=== PATIENT | male | born 1975 | race Two or more races ===

== ENCOUNTER 2017-11-02 22:31 | Inpatient (IN) | payer OTHER ==
[2017-11-02] MEDS ORDERED: NS 0.9% 1000 ML* 1,000 ML IV ONE (23:26)
[2017-11-02] MEDS ORDERED: Morphine INJ* 4 MG/ML 1 ML CARPUJECT IV ONE (23:26)
[2017-11-02] MEDS ORDERED: Ondansetron INJ* 2 MG/ML VIAL IV ONE (23:26)
[2017-11-03 00:52] LABS: Hematocrit 39 % (42-52); Hemoglobin 13.7 g/dl (14.0-18.0); Mean Corpuscular HGB Conc 35 g/dl (31-36); Mean Corpuscular Hemoglobin 31 pg (27-31); Mean Corpuscular Volume 90 fL (80-94); Mean Platelet Volume 8 um3 (7.4-10.4); Platelet Count 153 10^3/ul (150-450); Red Blood Count 4.37 10^6/ul (4.0-5.4); Red Cell Distribution Width 15 % (10.5-15); White Blood Count 14.3 10^3/ul (3.5-10.8)
[2017-11-03 01:05] LABS: INR 2.07 (0.77-1.02)
[2017-11-03 01:10] LABS: EGFR Non-African American 115.4 (>60)
[2017-11-03] MEDS ORDERED: KCL 20 MEQ/100 ML IVPREMIX* 20 MEQ/100 ML BAG IV ONE (01:31)
[2017-11-03] MEDS ORDERED: Meropenem 1 GM PREMIX(*) 1 GM/50 ML BAG IV ONE (01:32)
[2017-11-03] MEDS ORDERED: metroNIDAZOLE IV 500 MG/100ML* 500 MG/100 ML BAG IVPB ONE (01:34)
[2017-11-03] MEDS ORDERED: NS 0.9% 1000 ML* 2,000 ML IV ONE (01:35)
[2017-11-03 01:36] LABS: ABS Basophils 0.1 10^3/ul (0-0.2); ABS Eosinophils 0 10^3/ul (0-0.6); ABS Lymphocytes 1.4 10^3/ul (1.0-4.8); ABS Monocytes 1.7 10^3/ul (0-0.8); ABS Nucleated RBC 0 10^3/ul; Eosinophil % 0.1 % (0-6); Nucleated Red Blood Cells % 0.2
[2017-11-03] MEDS ORDERED: Ibuprofen TAB* 600 MG PO ONE (01:36)
[2017-11-03 02:23] LABS: Urine Appearance Clear; Urine Blood Negative (Negative); Urine Color Amber; Urine Ketones Negative (Negative); Urine Protein Negative (Negative); Urine Specific Gravity 1.013 (1.010-1.030); Urine Urobilinogen Positive (Negative)
--- NOTE | 2017-11-03 04:02 | ED ---
Keegan Ruiz Nilda, scribed for Emre Manuel MD on 11/03/17 at 0227 . GI/ HPI - HPI Summary HPI Summary: This patient is a 42 year old M presenting to [facility] accompanied by brother with a chief complaint of constant bilat flank pain for a few years, but it has progressively worsened for the last 4 nights. The patient rates the pain 9/10 in severity. Symptoms aggravated and alleviated by nothing. Patient reports N/V/ D, RUQ abd pain, and dark, oily abnormal urine (began 4 days ago). Patient denies fever. - History of Current Complaint Chief Complaint: EDFlankPain Time Seen by Provider: 11/02/17 23:21 Stated Complaint: FLANK PAIN Hx Obtained From: Patient Onset/Duration: Started Weeks Ago, Still Present Timing: Constant Current Severity: Severe Pain Intensity: 9 Location of Pain: Flank - bilat Pain Radiates to: Flank Associated Signs and Symptoms: Positive: Other: - N/V/D, RUQ abd pain, and dark , oily abnormal urine (4 days ago). Patient denies fever. Aggravating Factor(s): Nothing Alleviating Factor(s): Nothing - Allergy/Home Medications Allergies/Adverse Reactions: Allergies Allergy/AdvReac Type Severity Reaction Status Date / Time No Known Allergies Allergy Verified 11/02/17 22:36 PMH/Surg Hx/FS Hx/Imm Hx Endocrine/Hematology History: Reports: Hx Diabetes, Hx Thyroid Disease - hypothyroidism Cardiovascular History: Reports: Hx Hypercholesterolemia, Hx Hypertension Denies: Hx Pacemaker/ICD Respiratory History: Reports: Hx Asthma, Hx Chronic Obstructive Pulmonary Disease (COPD) - getting there, Hx Sleep Apnea GI History: Denies: Hx Ulcer History: Denies: Hx Renal Disease Sensory History: Denies: Hx Hearing Aid Psychiatric History: Reports: Hx Substance Abuse - in recovery Denies: Hx Panic Disorder - Immunization History Date of Tetanus Vaccine: unknown Date of Influenza Vaccine: none Infectious Disease History: No Infectious Disease History: Denies: Hx Hepatitis, Hx Human Immunodeficiency Virus (HIV), Traveled Outside the [place] in Last 30 Days - Family History Known Family History: Positive: Cardiac Disease, Diabetes, Other - CVA - Social History Alcohol Use: Daily Alcohol Amount: several "tall boys" daily Substance Use Type: Reports: Marijuana Substance Use Comment - Amount & Last Used: weekly Smoking Status (MU): Heavy Every Day Tobacco Smoker Review of Systems Negative: Fever Positive: Abdominal Pain - RUQ, Vomiting, Diarrhea, Nausea Positive: flank pain - bilat, other - dark, oily urine (past 4 days) All Other Systems Reviewed And Are Negative: Yes Physical Exam - Summary Physical Exam Summary: VITAL SIGNS: Reviewed. GENERAL: Patient is a well-developed and nourished male who is lying comfortable in the stretcher. Patient is not in any acute respiratory distress. HEAD AND FACE: No signs of trauma. No ecchymosis, hematomas or skull depressions. No sinus tenderness. EYES: PERRLA, EOMI x 2, No injected conjunctiva, no nystagmus; Deeply icteric sclera EARS: Hearing grossly intact. Ear canals and tympanic membranes are within normal limits. MOUTH: Oropharynx within normal limits. NECK: Supple, trachea is midline, no adenopathy, no JVD, no carotid bruit, no c- spine tenderness, neck with full ROM. CHEST: Symmetric, no tenderness at palpation LUNGS: Clear to auscultation bilaterally. No wheezing or crackles. CVS: Regular rate and rhythm, S1 and S2 present, no murmurs or gallops appreciated. ABDOMEN: Soft. No signs of distention. No rebound, no guarding. Bowel sounds are normal. RUQ tenderness with deep palpation and hepatomegaly. EXTREMITIES: FROM in all major joints, no edema, no cyanosis or clubbing. NEURO: Alert and oriented x 3. No acute neurological deficits. Speech is normal and follows commands. SKIN: Dry and warm Triage Information Reviewed: Yes Vital Signs On Initial Exam: Initial Vitals Temp Pulse Resp BP Pulse Ox 100.9 F 122 18 161/92 97 11/02/17 22:33 11/02/17 22:33 11/02/17 22:33 11/02/17 22:33 11/02/17 22:33 Vital Signs Reviewed: Yes - Pernell Coma Scale Coma Scale Total: 15 Diagnostics - Vital Signs Vital Signs Temp Pulse Resp BP Pulse Ox 11/03/17 01:53 100.8 F 107 14 97 11/03/17 00:41 17 11/02/17 22:33 100.9 F 122 18 161/92 97 - Laboratory Lab Results: Lab Results 11/03/17 11/03/17 11/03/17 Range/Units 00:35 00:35 00:35 WBC 14.3 H (3.5-10.8) 10^3/ul RBC 4.37 (4.0-5.4) 10^6/ul Hgb 13.7 L (14.0-18.0) g/dl Hct 39 L (42-52) % MCV 90 (80-94) fL MCH 31 (27-31) pg MCHC 35 (31-36) g/dl RDW 15 (10.5-15) % Plt Count 153 (150-450) 10^3/ul MPV 8 (7.4-10.4) um3 Neut % (Auto) 77.2 (38-83) % Lymph % (Auto) 10.0 L (25-47) % Lassen % (Auto) 12.3 H (1-9) % Eos % (Auto) 0.1 (0-6) % Baso % (Auto) 0.4 (0-2) % Absolute Neuts (auto) 11.0 H (1.5-7.7) 10^3/ul Absolute Lymphs (auto) 1.4 (1.0-4.8) 10^3/ul Absolute Monos (auto) 1.7 H (0-0.8) 10^3/ul Absolute Eos (auto) 0 (0-0.6) 10^3/ul Absolute Basos (auto) 0.1 (0-0.2) 10^3/ul Absolute Nucleated RBC 0 10^3/ul Nucleated RBC % 0.2 Target Cells 2+ INR (Anticoag Therapy) (0.77-1.02) APTT (26.0-36.3) seconds Sodium 127 L (133-145) mmol/L Potassium 2.7 L* (3.5-5.0) mmol/L Chloride 90 L (101-111) mmol/L Carbon Dioxide 29 (22-32) mmol/L Anion Gap 8 (2-11) mmol/L BUN 4 L (6-24) mg/dL Creatinine 0.74 (0.67-1.17) mg/dL Est GFR ( Amer) 148.5 (>60) Est GFR (Non-Af Amer) 115.4 (>60) BUN/Creatinine Ratio 5.4 L (8-20) Glucose 126 H (70-100) mg/dL Lactic Acid 1.6 (0.5-2.0) mmol/L Calcium 8.4 L (8.6-10.3) mg/dL Total Bilirubin 19.90 H* (0.2-1.0) mg/dL AST 419 H (13-39) U/L ALT 190 H (7-52) U/L Alkaline Phosphatase 298 H (34-104) U/L Ammonia (16-53) mol/L C-Reactive Protein 75.82 H (< 5.00) mg/L Total Protein 7.1 (6.4-8.9) g/dL Albumin 2.6 L (3.2-5.2) g/dL Globulin 4.5 H (2-4) g/dL Albumin/Globulin Ratio 0.6 L (1-3) Amylase 31 (29-103) U/L Lipase 56 (11.0-82.0) U/L 11/03/17 11/03/17 Range/Units 00:35 00:35 WBC (3.5-10.8) 10^3/ul RBC (4.0-5.4) 10^6/ul Hgb (14.0-18.0) g/dl Hct (42-52) % MCV (80-94) fL MCH (27-31) pg MCHC (31-36) g/dl RDW (10.5-15) % Plt Count (150-450) 10^3/ul MPV (7.4-10.4) um3 Neut % (Auto) (38-83) % Lymph % (Auto) (25-47) % Lassen % (Auto) (1-9) % Eos % (Auto) (0-6) % Baso % (Auto) (0-2) % Absolute Neuts (auto) (1.5-7.7) 10^3/ul Absolute Lymphs (auto) (1.0-4.8) 10^3/ul Absolute Monos (auto) (0-0.8) 10^3/ul Absolute Eos (auto) (0-0.6) 10^3/ul Absolute Basos (auto) (0-0.2) 10^3/ul Absolute Nucleated RBC 10^3/ul Nucleated RBC % Target Cells INR (Anticoag Therapy) 2.07 H (0.77-1.02) APTT 40.3 H (26.0-36.3) seconds Sodium (133-145) mmol/L Potassium (3.5-5.0) mmol/L Chloride (101-111) mmol/L Carbon Dioxide (22-32) mmol/L Anion Gap (2-11) mmol/L BUN (6-24) mg/dL Creatinine (0.67-1.17) mg/dL Est GFR ( Amer) (>60) Est GFR (Non-Af Amer) (>60) BUN/Creatinine Ratio (8-20) Glucose (70-100) mg/dL Lactic Acid (0.5-2.0) mmol/L Calcium (8.6-10.3) mg/dL Total Bilirubin (0.2-1.0) mg/dL AST (13-39) U/L ALT (7-52) U/L Alkaline Phosphatase (34-104) U/L Ammonia 101 H (16-53) mol/L C-Reactive Protein (< 5.00) mg/L Total Protein (6.4-8.9) g/dL Albumin (3.2-5.2) g/dL Globulin (2-4) g/dL Albumin/Globulin Ratio (1-3) Amylase (29-103) U/L Lipase (11.0-82.0) U/L Result Diagrams: 11/03/17 00:35 11/03/17 00:35 Lab Statement: Any lab studies that have been ordered have been reviewed, and results considered in the medical decision making process. - Additional Comments Diagnostic Additional Comments: US Gallbladder, per radiologist, reveals enlarged fatty liver. Minimal perihepatic and pericholecystic fluid of uncertain etiology. No evidence of cholecystitis. Dr. Manuel has reviewed this radiology report. Re-Evaluation - Re-Evaluation First Eval Re-Evaluation Time: 02:06 Comment: Reviewed US resutls. Pt admits to drinking ETOH daily for the last four years. GIGU Course/Dx - Course Assessment/Plan: This pt is a 42 y/o M with Hx of HTN and ETOH abuse for the past 4 years. Pt presents with acute onset of jaundice, abd pain, N/V, elevated liver enzyme, high white count, and fever. Differentials include Acute cholangitis vs acute alcoholic liver disease. US Gallbladder, per radiologist, reveals enlarged fatty liver. Minimal perihepatic and pericholecystic fluid of uncertain etiology. No evidence of cholecystitis. Dr. Manuel has reviewed this radiology report. 0249 Dr. Bo (hospitalist) accepts pt for admission to [facility]. Pt is stable and will be transferred to [facility] for GI consult. - Diagnoses Provider Diagnoses: Acute liver disease, Acute cholangitis - Physician Notifications Discussed Care Of Patient With: Dr. Bo - Hospitalist [facility] Time Discussed With Above Provider: 02:49 Instructed by Provider To: Transfer - accepts pt for transfer. Discharge - Discharge Plan Condition: Stable Disposition: TRANS HIGHER LVL OF CARE FAC Discharge Disposition Comment: Transfer to [facility] Referrals: No Primary Care Phys,NOPCP [Primary Care Provider] - The documentation as recorded by the Keegan carreon Nilda accurately reflects the service I personally performed and the decisions made by Kaleb savage Abdul, MD.
[2017-11-03] MEDS: KCL premix 10MEQ/50 ML x 2 BAGS IV SCH ×2 (04:03→05:15)
[2017-11-03] MEDS ORDERED: HYDROmorphone INJ* 1 MG/ML CARPUJECT SYRINGE IV SLOW PU ONE (04:07)
--- NOTE | 2017-11-03 08:16 | CONSULT ---
Consult Consult: Mr. Corral presented with bilateral flank pain that he has had for a long time and a new onset of jaundice about 4 days [employer]. He's a steady drinker. He C/ O'd some mild pressure to palpation over his RUQ. I think he has an alcoholic hepatitis. His AST is quite a bit higher than his ALT and he is quite jaundice with a low grade fever. I consulted Dr. Simons of the hospitalist service for admission. He will be admitted in stable condition with a diagnosis of alcoholic hepatitis.
[2017-11-03] MEDS ORDERED: Al Hydrox/Mg Hydrox/Simet LIQ* 30 ML UDC PO PRN (09:04)
[2017-11-03] MEDS ORDERED: Ondansetron INJ* 2 MG/ML VIAL IV PRN (10:55)
[2017-11-03] MEDS: Morphine INJ* 4 MG/ML 1 ML CARPUJECT IV PRN ×3 (11:30→19:58)
--- NOTE | 2017-11-03 11:43 | RAD ---
Indication: Abdominal pain. Real-time sonography of the abdomen was performed. The liver measures 22.3 cm in length and is increased in echogenicity. The portal vein appears to be patent. A trace amount of ascites is noted near the Dome and surrounding the gallbladder. The gallbladder demonstrates no gallstones or wall thickening. Common duct measures 5 mm. The right kidney measures 12.6 x 5.7 x 5.3 cm with no hydronephrosis. The pancreas demonstrates no mass or pancreatic duct dilatation. IMPRESSION: Enlarged echogenic liver with small amount of ascites. No biliary duct dilatation is noted. A small amount of pericholecystic fluid is noted.
[2017-11-03] MEDS: PrednisoLONE LIQ 3 MG/ML* 15 MG/5 ML UDC PO SCH (12:38)
[2017-11-03] MEDS ORDERED: Acetaminophen TAB* 325 MG PO PRN (13:11)
[2017-11-03] MEDS ORDERED: Thiamine IV* 100 MG/ML 2 ML VIAL IM ONE (13:11)
[2017-11-03] MEDS: NS 0.9% 1000 ML* 1,000 ML IV SCH ×2 (13:18→23:06)
--- NOTE | 2017-11-03 13:39 | HP ---
ADDENDUM NOW INCLUDED ON THIS REPORT HISTORY AND PHYSICAL: DATE OF ADMISSION: 11/03/17 TIME OF EXAM: 9:30 a.m. PRIMARY CARE PHYSICIAN: He has not seen a physician in 2 years. CHIEF COMPLAINT: "My kidneys hurt, I've been weak." HISTORY OF PRESENT ILLNESS: This is a 42-year-old man with a history of hypertension, diabetes, and anxiety, who presents with 5 days of back pain, weakness, and inability to tolerate food, associated with nausea and vomiting for 5 days. He does report history of alcohol abuse, but says that he has not been under any extra recent stress lately and has not drank more than his usual 5 beers per day. He has felt so ill that he has not drank alcohol since Friday night. He has not noticed change in his skin or eye color, but he has noticed that his urine has become darker. He is obese; he has been losing weight. He believes he has been having occasional fevers and chills. He denies abdominal pain or abdominal distention and does not know of any liver disease that he has been diagnosed with in the past. PAST MEDICAL HISTORY: He has not seen a physician in over 2 years. He was diagnosed with diabetes, but says that it has been controlled with diet. He has been diagnosed with hypertension and anxiety. HOME MEDICATIONS: 1. Klonopin 1 mg p.o. t.i.d. 2. Clonidine 0.1 mg q.h.s. FAMILY HISTORY: His uncle had a liver transplant recently, but he is not sure why. He also has coronary artery disease in his family. SOCIAL HISTORY: He drinks five 24 ounces beers per day and has been doing so for 4- 1/2 years. He smokes 10 cigarettes per day and occasionally uses marijuana. 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 REVIEW OF SYSTEMS: Positive for chills, nausea, vomiting, poor appetite. He denies diarrhea, constipation, melena or hematochezia. PHYSICAL EXAMINATION GENERAL: Alert, well-nourished man with jaundice. VITAL SIGNS: Temperature 100.1, heart rate 122, respirations 18, pulse ox 97%, blood pressure 151/92. HEENT: Scleral icterus. Pupils are equal, round and reactive to light. Moist mucosa. NECK: No JVP. No cervical adenopathy. LUNGS: Clear bilaterally. CHEST: Tachycardic. No murmurs. BMI nondisplaced. ABDOMEN: Obese, soft, nontender, and nondistended. Liver palpable at the right coastal margin. No guarding or rebound. Bowel sounds hyperactive. No flank pain or tenderness. EXTREMITIES: Tattoos on both upper extremities. No lower extremity edema. Strength 5+ throughout and sensation intact. No asterixis. NEUROLOGIC: Alert and oriented x3. DIAGNOSTIC STUDIES/LAB DATA: Bilirubin 19.9, ALT 190, AST 419, alk phos 298. White blood cells 14.3. Sodium 127, potassium 2.7. HCV antibody positive. INR of 2.07. ASSESSMENT AND PLAN: This is a 42-year-old male with history of alcohol abuse, who presents with weakness, nausea, vomiting, and back pain for 5 days. 1. Alcoholic hepatitis. I suspect this is alcoholic hepatitis; however, I need prothrombin time to confirm with Derrick's Discriminant Function Score. I am adding a prothrombin time now and will determine the need for prednisolone. After the result of the discriminant function score, I am consulting GI. 2. Alcohol abuse. He denies ever having had seizures or delirium tremens. He said his last drink was approximately 36 hours ago. I will start the [facility] protocol and consult Social Work. 3. Coagulopathy, likely related to the alcoholic hepatitis. It is unknown if he has underlying cirrhosis or if this is an acute process relating to hepatitis. No evidence of bleeding right now and no indication to reverse the coagulopathy. We will continue to monitor. 4. Sepsis. I suspect this is reactive in relation to the hepatitis and an inflammatory response. He has no evidence of an infectious source at this point. No indication for antibiotics. We will continue to monitor. 5. Hepatitis C virus positive. This is a new diagnosis for Mr. Corral. This in combination with alcoholic abuse is very concerning for ongoing liver disease and alcohol abstinence is essential for him. We will arrange outpatient ID followup if he is interested in hepatitis C therapy and we will check a right upper quadrant ultrasound to evaluate for cirrhosis and rule out _ ____. 6. Hypokalemia, likely related to poor p.o. intake, replete now. 7. Anxiety disorder. Continue home dose of Klonopin. 8. Hypertension. Continue clonidine. 9. DVT prophylaxis. We will hold given coagulopathy; however, it should be noted that he is indeed hypercoagulable if this is a coagulopathy of cirrhosis. TIME SPENT: Greater than 60 minutes was spent on this admission. ADDENDUM: I discussed the prothrombin time with lab. His PT is 25.9. This gives him a Maddrey's Discriminant Function Score of 84, so I am initiating prednisolone and we will discuss this with GI. [id number]/[facility] #: [id number]/[facility] #: [id number] PAMELA
--- NOTE | 2017-11-03 13:39 | HP ---
HISTORY AND PHYSICAL: ADDENDUM: I discussed the prothrombin time with lab. His PT is 25.9. This gives him a Maddrey's Discriminant Function Score of 84, so I am initiating prednisolone and we will discuss this with GI. [id number]/[facility] #: [id number] PAMELA
[2017-11-03] MEDS ORDERED: LORazepam INJ* 2 MG/ML 1 ML VIAL IM SCH (14:00)
[2017-11-03] MEDS: clonazePAM TAB(*) 1 MG PO SCH ×2 (14:12→20:43)
[2017-11-03] MEDS: cloNIDine TAB* 0.1 MG PO SCH (17:34)
[2017-11-03] MEDS ORDERED: Mouth Piece, Nicotine* 1 EACH CARTRIDGE INH PRN (19:45)
[2017-11-03] MEDS: Nicotine Inhaler* 10 MG AMP INH PRN (20:42)
[2017-11-04] MEDS: Morphine INJ* 4 MG/ML 1 ML CARPUJECT IV PRN ×5 (00:02→23:41)
--- NOTE | 2017-11-04 00:23 | CONS ---
CONSULTATION REPORT: DATE OF CONSULT: 11/03/17 REQUESTING PHYSICIAN: Dr. Simons. INDICATION: Alcoholic hepatitis. NARRATIVE: Mr. Corral is a 42-year-old alcoholic, he admits to drinking greater than 5 beers per day. He has not been drinking over the past few days because he has been feeling so ill. He states that he has been nauseated, has abdominal pain, and was just too sick to drink alcohol. He has also noticed darker urine. He denies any black stool. No confusion. He states that he was checked for hepatitis C 2 years ago. He did have a positive HCV antibody in the emergency room. Again slight nausea, no vomiting. He is feeling slightly better after receiving some fluids. PAST MEDICAL HISTORY: Significant for diabetes, hypertension, and anxiety. PAST SURGICAL HISTORY: None. MEDICATIONS: Upon admission include: 1. Clonidine. 2. Klonopin. FAMILY HISTORY: Liver disease, his uncle had a liver transplant, but the patient does not know why; coronary artery disease in the family. SOCIAL HISTORY: Five 24-ounce beers per day. He smokes cigarettes and marijuana. REVIEW OF SYSTEMS: 12 systems were reviewed, other than mentioned in the HPI were unremarkable. PHYSICAL EXAM: Temperature is 98.3, T-max is 99.3, blood pressure is 135/71, pulse is 92. General: Chronically ill-appearing male, in no acute distress. Alert, oriented, pleasant, fluent. HEENT: Sclerae are icteric. Mucous membranes are moist without lesions, ulcers, or exudate. Skin is jaundiced. Neuro: No asterixis. Heart: Regular rate and rhythm. No murmurs, rubs, or gallops. Lungs: Clear to auscultation bilaterally. No wheezes, rales, or rhonchi. Abdomen is obese, positive bowel sounds, soft. Diffuse tenderness throughout. No rebound, no guarding. He does have dull flanks. DIAGNOSTIC STUDIES/LAB DATA: Labs of note, INR is 2.07. Hepatitis B surface antigen is negative. Hepatitis C antibody is positive. BUN is 4, creatinine is 0.74, sodium is 127, platelets of 153. Hemoglobin 13.7, white count is 14.3. Bilirubin was 19.0, AST is 419, ALT is 190. Ammonia is 101. Amylase and lipase normal. His MELD is calculated at 31. His Maddrey discriminant score is 84. Gallbladder ultrasound shows ascites and a large liver. ASSESSMENT AND PLAN: This is a 42-year-old gentleman with likely acute on chronic alcoholic hepatitis in the setting of alcoholic cirrhosis. His Maddrey score is 84. I agree with the prednisolone, which has been already started. His MELD is elevated at 31. He unfortunately has hepatitis C positive, this in combination with alcoholism is a very bad combination. He has ascites, I do not think this needs to be treated right now but may require diuretics in the future. Even though his ammonia is 101, he has no asterixis. He may have just mild encephalopathy at this point. No black and tarry stools. He will need to have an EGD as an outpatient. He needs to avoid all alcohol and potentially get his hepatitis C treated as an outpatient, we will continue to follow along. [id number]/[facility] #: [id number] MTDJose Alberto
[2017-11-04] MEDS: Nicotine Inhaler* 10 MG AMP INH PRN (01:49)
[2017-11-04 06:52] LABS: INR 2.3 (0.77-1.02)
[2017-11-04] MEDS: NS 0.9% 1000 ML* 1,000 ML IV SCH ×3 (06:52→21:29)
[2017-11-04 06:53] LABS: ABS Basophils 0.1 10^3/ul (0-0.2); ABS Eosinophils 0 10^3/ul (0-0.6); ABS Lymphocytes 1.4 10^3/ul (1.0-4.8); ABS Monocytes 1.1 10^3/ul (0-0.8); ABS Neutrophils 9.7 10^3/ul (1.5-7.7); ABS Nucleated RBC 0 10^3/ul; Eosinophil % 0.2 % (0-6); Hematocrit 38 % (42-52); Hemoglobin 13.4 g/dl (14.0-18.0); Lymphocyte % 11.2 % (25-47); Mean Corpuscular HGB Conc 35 g/dl (31-36); Mean Corpuscular Hemoglobin 32 pg (27-31); Mean Corpuscular Volume 91 fL (80-94); Mean Platelet Volume 8 um3 (7.4-10.4); Nucleated Red Blood Cells % 0.1; Platelet Count 144 10^3/ul (150-450); Red Blood Count 4.17 10^6/ul (4.0-5.4); Red Cell Distribution Width 16 % (10.5-15); White Blood Count 12.3 10^3/ul (3.5-10.8)
[2017-11-04] MEDS ORDERED: Influenza VAC *QUAD* 2017-18* 0.5 ML SYRINGE IM ONE (09:00)
[2017-11-04 09:51] LABS: EGFR Non-African American 123.1 (>60)
[2017-11-04] MEDS ORDERED: Potassium Chlor TAB* 20 MEQ TAB.ER PO ONE (10:09)
[2017-11-04] MEDS: PrednisoLONE LIQ 3 MG/ML* 15 MG/5 ML UDC PO SCH (10:30)
[2017-11-04] MEDS: Folic Acid TAB* 1 MG PO SCH (10:31)
[2017-11-04] MEDS: clonazePAM TAB(*) 1 MG PO SCH ×3 (10:31→20:26)
[2017-11-04] MEDS: Multivitamins/Minerals TAB PO SCH (10:31)
--- NOTE | 2017-11-04 10:31 | PN ---
Subjective Date of Service: 11/04/17 Interval History: No N/V No abdominal pain but pain in b/l flanks No CP or SOB Appetite is poor Objective Active Medications: Acetaminophen (Tylenol Tab*) 650 mg PO Q4H PRN PRN Reason: PAIN Al Hydrox/Mg Hydrox/Simethicone (Maalox Plus*) 30 ml PO Q6H PRN PRN Reason: INDIGESTION Clonazepam (Klonopin Tab(*)) 1 mg PO TID [facility] Last Admin: 11/03/17 20:43 Dose: 1 mg Clonidine HCl (Catapres Tab*) 0.1 mg PO QPM [facility] Last Admin: 11/03/17 17:34 Dose: 0.1 mg Device (Nicotine Mouth Piece*) 1 each INH .USE WITH NICOTROL PRN PRN Reason: CRAVING Last Admin: 11/03/17 20:42 Dose: 1 each Folic Acid (Folvite Tab*) 1 mg PO DAILY [facility] Sodium Chloride (Ns 0.9% 1000 Ml*) 1,000 mls @ 150 mls/hr IV PER RATE [facility] Last Admin: 11/04/17 06:52 Dose: 150 mls/hr Lorazepam (Ativan Inj*) 0 - 6 mg IM .PER [facility] PROTOCOL [facility] PRN Reason: Protocol Morphine Sulfate (Morphine Inj (Syringe)*) 4 mg IV Q4H PRN PRN Reason: PAIN Last Admin: 11/04/17 04:54 Dose: 4 mg Multivitamins/Minerals (Theragran/Minerals Tab*) 1 tab PO DAILY [facility] Nicotine (Nicotine Inhaler*) 10 mg INH Q2H PRN PRN Reason: CRAVING Last Admin: 11/04/17 01:49 Dose: 10 mg Ondansetron HCl (Zofran Inj*) 4 mg IV Q4H PRN PRN Reason: NAUSEA Prednisolone Sodium Phosphate (Prednisolone Liq 3 Mg/Ml 5 Ml Udc*) 40 mg PO DAILY [facility] Last Admin: 11/03/17 12:38 Dose: 40 mg Thiamine HCl (Vitamin B-1 Tab*) 100 mg PO DAILY [facility] Vital Signs - 8 hr 11/04/17 11/04/17 11/04/17 04:54 06:01 06:05 Temperature 98.1 F Pulse Rate 86 Respiratory 18 18 20 Rate Blood Pressure 124/68 (mmHg) O2 Sat by Pulse 99 Oximetry 11/04/17 08:07 Temperature 97.9 F Pulse Rate 83 Respiratory 16 Rate Blood Pressure 124/74 (mmHg) O2 Sat by Pulse 99 Oximetry Oxygen Devices in Use Now: None Appearance: jaundiced, lying flat, NAD Eyes: PERRLA, - - icteric Neck: NL Appearance and Movements; NL JVP, Trachea Midline Respiratory: Symmetrical Chest Expansion and Respiratory Effort, Clear to Auscultation Cardiovascular: RRR Abdominal: - - soft, NTTP, +distention, +bs Lymphatic: No Cervical Adenopathy, No Axillary Adenopathy Extremities: No Edema Skin: No Rash or Ulcers, - - diffusely jaundiced Neurological: Alert and Oriented x 3, - - no asterixis Result Diagrams: 11/04/17 06:11 11/04/17 06:11 Additional Lab and Data: Lab Results 11/03/17 11/03/17 11/03/17 Range/Units 00:35 00:35 00:35 WBC 14.3 H (3.5-10.8) 10^3/ul RBC 4.37 (4.0-5.4) 10^6/ul Hgb 13.7 L (14.0-18.0) g/dl Hct 39 L (42-52) % MCV 90 (80-94) fL MCH 31 (27-31) pg MCHC 35 (31-36) g/dl RDW 15 (10.5-15) % Plt Count 153 (150-450) 10^3/ul MPV 8 (7.4-10.4) um3 Neut % (Auto) 77.2 (38-83) % Lymph % (Auto) 10.0 L (25-47) % Taylor % (Auto) 12.3 H (1-9) % Eos % (Auto) 0.1 (0-6) % Baso % (Auto) 0.4 (0-2) % Absolute Neuts (auto) 11.0 H (1.5-7.7) 10^3/ul Absolute Lymphs (auto) 1.4 (1.0-4.8) 10^3/ul Absolute Monos (auto) 1.7 H (0-0.8) 10^3/ul Absolute Eos (auto) 0 (0-0.6) 10^3/ul Absolute Basos (auto) 0.1 (0-0.2) 10^3/ul Absolute Nucleated RBC 0 10^3/ul Nucleated RBC % 0.2 Target Cells 2+ INR (Anticoag Therapy) (0.77-1.02) APTT (26.0-36.3) seconds Sodium 127 L (133-145) mmol/L Potassium 2.7 L* (3.5-5.0) mmol/L Chloride 90 L (101-111) mmol/L Carbon Dioxide 29 (22-32) mmol/L Anion Gap 8 (2-11) mmol/L BUN 4 L (6-24) mg/dL Creatinine 0.74 (0.67-1.17) mg/dL Est GFR ( Amer) 148.5 (>60) Est GFR (Non-Af Amer) 115.4 (>60) BUN/Creatinine Ratio 5.4 L (8-20) Glucose 126 H (70-100) mg/dL Lactic Acid 1.6 (0.5-2.0) mmol/L Calcium 8.4 L (8.6-10.3) mg/dL Total Bilirubin 19.90 H* (0.2-1.0) mg/dL AST 419 H (13-39) U/L ALT 190 H (7-52) U/L Alkaline Phosphatase 298 H (34-104) U/L Ammonia (16-53) mol/L C-Reactive Protein 75.82 H (< 5.00) mg/L Total Protein 7.1 (6.4-8.9) g/dL Albumin 2.6 L (3.2-5.2) g/dL Globulin 4.5 H (2-4) g/dL Albumin/Globulin Ratio 0.6 L (1-3) Amylase 31 (29-103) U/L Lipase 56 (11.0-82.0) U/L 11/03/17 11/03/17 Range/Units 00:35 00:35 WBC (3.5-10.8) 10^3/ul RBC (4.0-5.4) 10^6/ul Hgb (14.0-18.0) g/dl Hct (42-52) % MCV (80-94) fL MCH (27-31) pg MCHC (31-36) g/dl RDW (10.5-15) % Plt Count (150-450) 10^3/ul MPV (7.4-10.4) um3 Neut % (Auto) (38-83) % Lymph % (Auto) (25-47) % Taylor % (Auto) (1-9) % Eos % (Auto) (0-6) % Baso % (Auto) (0-2) % Absolute Neuts (auto) (1.5-7.7) 10^3/ul Absolute Lymphs (auto) (1.0-4.8) 10^3/ul Absolute Monos (auto) (0-0.8) 10^3/ul Absolute Eos (auto) (0-0.6) 10^3/ul Absolute Basos (auto) (0-0.2) 10^3/ul Absolute Nucleated RBC 10^3/ul Nucleated RBC % Target Cells INR (Anticoag Therapy) 2.07 H (0.77-1.02) APTT 40.3 H (26.0-36.3) seconds Sodium (133-145) mmol/L Potassium (3.5-5.0) mmol/L Chloride (101-111) mmol/L Carbon Dioxide (22-32) mmol/L Anion Gap (2-11) mmol/L BUN (6-24) mg/dL Creatinine (0.67-1.17) mg/dL Est GFR ( Amer) (>60) Est GFR (Non-Af Amer) (>60) BUN/Creatinine Ratio (8-20) Glucose (70-100) mg/dL Lactic Acid (0.5-2.0) mmol/L Calcium (8.6-10.3) mg/dL Total Bilirubin (0.2-1.0) mg/dL AST (13-39) U/L ALT (7-52) U/L Alkaline Phosphatase (34-104) U/L Ammonia 101 H (16-53) mol/L C-Reactive Protein (< 5.00) mg/L Total Protein (6.4-8.9) g/dL Albumin (3.2-5.2) g/dL Globulin (2-4) g/dL Albumin/Globulin Ratio (1-3) Amylase (29-103) U/L Lipase (11.0-82.0) U/L Assess/Plan/Problems-Billing Assessment: - Patient Problems (1) Alcoholic hepatitis with ascites Comment: MDF >80 portending poor prognosis on steroids appreciate GI consult trend LFTs (2) Hepatitis C Comment: benefit from therapy after alcoholic hepatits resolved (3) Chronic alcoholism Comment: would like to quit SW consult (4) DVT prophylaxis Comment: SCDs in setting of hepatits and coagulopathy
[2017-11-04] MEDS: Thiamine TAB* 100 MG TAB PO SCH (10:32)
[2017-11-04] MEDS: cloNIDine TAB* 0.1 MG PO SCH (17:41)
[2017-11-05] MEDS: Morphine INJ* 4 MG/ML 1 ML CARPUJECT IV PRN ×5 (04:13→22:36)
[2017-11-05] MEDS: NS 0.9% 1000 ML* 1,000 ML IV SCH ×3 (04:15→18:17)
[2017-11-05 08:10] LABS: Hematocrit 39 % (42-52); Hemoglobin 13.6 g/dl (14.0-18.0); Mean Corpuscular HGB Conc 34 g/dl (31-36); Mean Corpuscular Hemoglobin 32 pg (27-31); Mean Corpuscular Volume 92 fL (80-94); Mean Platelet Volume 8 um3 (7.4-10.4); Platelet Count 161 10^3/ul (150-450); Red Cell Distribution Width 17 % (10.5-15); White Blood Count 15.1 10^3/ul (3.5-10.8)
[2017-11-05 08:14] LABS: INR 2.04 (0.77-1.02)
[2017-11-05 08:23] LABS: EGFR Non-African American 115.4 (>60)
[2017-11-05 08:38] LABS: ABS Basophils 0.2 10^3/ul (0-0.2); ABS Eosinophils 0 10^3/ul (0-0.6); ABS Lymphocytes 2.4 10^3/ul (1.0-4.8); ABS Monocytes 1.6 10^3/ul (0-0.8); ABS Neutrophils 10.9 10^3/ul (1.5-7.7); ABS Nucleated RBC 0 10^3/ul; Eosinophil % 0.3 % (0-6); Lymphocyte % 15.7 % (25-47); Nucleated Red Blood Cells % 0; Tear Drop Cells 1+
[2017-11-05] MEDS: PrednisoLONE LIQ 3 MG/ML* 15 MG/5 ML UDC PO SCH (09:21)
[2017-11-05] MEDS: Multivitamins/Minerals TAB PO SCH (09:26)
[2017-11-05] MEDS: Folic Acid TAB* 1 MG PO SCH (09:26)
[2017-11-05] MEDS: clonazePAM TAB(*) 1 MG PO SCH ×3 (09:26→20:14)
[2017-11-05] MEDS: Thiamine TAB* 100 MG TAB PO SCH (09:28)
[2017-11-05] MEDS: Nicotine Inhaler* 10 MG AMP INH PRN (14:17)
--- NOTE | 2017-11-05 17:26 | PN ---
Subjective Date of Service: 11/05/17 Interval History: Abdominal pain is present but improved Reflective today on his life. Wants to get better because he helps take care of his ill mother. Objective Active Medications: Acetaminophen (Tylenol Tab*) 650 mg PO Q4H PRN PRN Reason: PAIN Al Hydrox/Mg Hydrox/Simethicone (Maalox Plus*) 30 ml PO Q6H PRN PRN Reason: INDIGESTION Clonazepam (Klonopin Tab(*)) 1 mg PO TID [facility] Last Admin: 11/05/17 14:17 Dose: 1 mg Clonidine HCl (Catapres Tab*) 0.1 mg PO QPM [facility] Last Admin: 11/04/17 17:41 Dose: 0.1 mg Device (Nicotine Mouth Piece*) 1 each INH .USE WITH NICOTROL PRN PRN Reason: CRAVING Last Admin: 11/03/17 20:42 Dose: 1 each Folic Acid (Folvite Tab*) 1 mg PO DAILY [facility] Last Admin: 11/05/17 09:26 Dose: 1 mg Sodium Chloride (Ns 0.9% 1000 Ml*) 1,000 mls @ 150 mls/hr IV PER RATE [facility] Last Admin: 11/05/17 11:19 Dose: 150 mls/hr Lorazepam (Ativan Inj*) 0 - 6 mg IM .PER [facility] PROTOCOL [facility] PRN Reason: Protocol Morphine Sulfate (Morphine Inj (Syringe)*) 4 mg IV Q4H PRN PRN Reason: PAIN Last Admin: 11/05/17 14:16 Dose: 4 mg Multivitamins/Minerals (Theragran/Minerals Tab*) 1 tab PO DAILY [facility] Last Admin: 11/05/17 09:26 Dose: 1 tab Nicotine (Nicotine Inhaler*) 10 mg INH Q2H PRN PRN Reason: CRAVING Last Admin: 11/05/17 14:17 Dose: 10 mg Ondansetron HCl (Zofran Inj*) 4 mg IV Q4H PRN PRN Reason: NAUSEA Prednisolone Sodium Phosphate (Prednisolone Liq 3 Mg/Ml 5 Ml Udc*) 40 mg PO DAILY [facility] Last Admin: 11/05/17 09:21 Dose: 40 mg Thiamine HCl (Vitamin B-1 Tab*) 100 mg PO DAILY [facility] Last Admin: 11/05/17 09:28 Dose: 100 mg Vital Signs - 8 hr 11/05/17 11/05/17 11/05/17 09:26 10:00 10:01 Temperature 97.3 F Pulse Rate 85 Respiratory 17 16 20 Rate Blood Pressure 107/64 (mmHg) O2 Sat by Pulse 94 Oximetry 11/05/17 11/05/17 11/05/17 10:20 11:48 12:00 Temperature Pulse Rate Respiratory 16 16 20 Rate Blood Pressure (mmHg) O2 Sat by Pulse Oximetry 11/05/17 11/05/17 11/05/17 12:25 14:00 14:16 Temperature 98.1 F Pulse Rate 83 Respiratory 20 19 18 Rate Blood Pressure 141/83 (mmHg) O2 Sat by Pulse 97 Oximetry 11/05/17 11/05/17 11/05/17 14:17 14:24 15:15 Temperature 97.5 F Pulse Rate 84 Respiratory 19 19 18 Rate Blood Pressure 122/72 (mmHg) O2 Sat by Pulse 95 Oximetry 11/05/17 11/05/17 11/05/17 15:57 16:00 16:15 Temperature 97.8 F Pulse Rate 76 Respiratory 20 17 19 Rate Blood Pressure 115/69 (mmHg) O2 Sat by Pulse 96 Oximetry Oxygen Devices in Use Now: None Appearance: lying flat, NAD Eyes: PERRLA, - - scleral icterus Ears/Nose/Mouth/Throat: Mucous Membranes Moist Neck: NL Appearance and Movements; NL JVP, Trachea Midline Respiratory: Symmetrical Chest Expansion and Respiratory Effort, Clear to Auscultation Cardiovascular: RRR Abdominal: - - mild ttp RUQ, +bs, ND Lymphatic: No Cervical Adenopathy Extremities: No Edema Skin: No Rash or Ulcers Neurological: Alert and Oriented x 3 Result Diagrams: 11/05/17 07:38 11/05/17 07:38 Additional Lab and Data: Lab Results 11/03/17 11/03/17 11/03/17 Range/Units 00:35 00:35 00:35 WBC 14.3 H (3.5-10.8) 10^3/ul RBC 4.37 (4.0-5.4) 10^6/ul Hgb 13.7 L (14.0-18.0) g/dl Hct 39 L (42-52) % MCV 90 (80-94) fL MCH 31 (27-31) pg MCHC 35 (31-36) g/dl RDW 15 (10.5-15) % Plt Count 153 (150-450) 10^3/ul MPV 8 (7.4-10.4) um3 Neut % (Auto) 77.2 (38-83) % Lymph % (Auto) 10.0 L (25-47) % Maury % (Auto) 12.3 H (1-9) % Eos % (Auto) 0.1 (0-6) % Baso % (Auto) 0.4 (0-2) % Absolute Neuts (auto) 11.0 H (1.5-7.7) 10^3/ul Absolute Lymphs (auto) 1.4 (1.0-4.8) 10^3/ul Absolute Monos (auto) 1.7 H (0-0.8) 10^3/ul Absolute Eos (auto) 0 (0-0.6) 10^3/ul Absolute Basos (auto) 0.1 (0-0.2) 10^3/ul Absolute Nucleated RBC 0 10^3/ul Nucleated RBC % 0.2 Target Cells 2+ INR (Anticoag Therapy) (0.77-1.02) APTT (26.0-36.3) seconds Sodium 127 L (133-145) mmol/L Potassium 2.7 L* (3.5-5.0) mmol/L Chloride 90 L (101-111) mmol/L Carbon Dioxide 29 (22-32) mmol/L Anion Gap 8 (2-11) mmol/L BUN 4 L (6-24) mg/dL Creatinine 0.74 (0.67-1.17) mg/dL Est GFR ( Amer) 148.5 (>60) Est GFR (Non-Af Amer) 115.4 (>60) BUN/Creatinine Ratio 5.4 L (8-20) Glucose 126 H (70-100) mg/dL Lactic Acid 1.6 (0.5-2.0) mmol/L Calcium 8.4 L (8.6-10.3) mg/dL Total Bilirubin 19.90 H* (0.2-1.0) mg/dL AST 419 H (13-39) U/L ALT 190 H (7-52) U/L Alkaline Phosphatase 298 H (34-104) U/L Ammonia (16-53) mol/L C-Reactive Protein 75.82 H (< 5.00) mg/L Total Protein 7.1 (6.4-8.9) g/dL Albumin 2.6 L (3.2-5.2) g/dL Globulin 4.5 H (2-4) g/dL Albumin/Globulin Ratio 0.6 L (1-3) Amylase 31 (29-103) U/L Lipase 56 (11.0-82.0) U/L 11/03/17 11/03/17 Range/Units 00:35 00:35 WBC (3.5-10.8) 10^3/ul RBC (4.0-5.4) 10^6/ul Hgb (14.0-18.0) g/dl Hct (42-52) % MCV (80-94) fL MCH (27-31) pg MCHC (31-36) g/dl RDW (10.5-15) % Plt Count (150-450) 10^3/ul MPV (7.4-10.4) um3 Neut % (Auto) (38-83) % Lymph % (Auto) (25-47) % Maury % (Auto) (1-9) % Eos % (Auto) (0-6) % Baso % (Auto) (0-2) % Absolute Neuts (auto) (1.5-7.7) 10^3/ul Absolute Lymphs (auto) (1.0-4.8) 10^3/ul Absolute Monos (auto) (0-0.8) 10^3/ul Absolute Eos (auto) (0-0.6) 10^3/ul Absolute Basos (auto) (0-0.2) 10^3/ul Absolute Nucleated RBC 10^3/ul Nucleated RBC % Target Cells INR (Anticoag Therapy) 2.07 H (0.77-1.02) APTT 40.3 H (26.0-36.3) seconds Sodium (133-145) mmol/L Potassium (3.5-5.0) mmol/L Chloride (101-111) mmol/L Carbon Dioxide (22-32) mmol/L Anion Gap (2-11) mmol/L BUN (6-24) mg/dL Creatinine (0.67-1.17) mg/dL Est GFR ( Amer) (>60) Est GFR (Non-Af Amer) (>60) BUN/Creatinine Ratio (8-20) Glucose (70-100) mg/dL Lactic Acid (0.5-2.0) mmol/L Calcium (8.6-10.3) mg/dL Total Bilirubin (0.2-1.0) mg/dL AST (13-39) U/L ALT (7-52) U/L Alkaline Phosphatase (34-104) U/L Ammonia 101 H (16-53) mol/L C-Reactive Protein (< 5.00) mg/L Total Protein (6.4-8.9) g/dL Albumin (3.2-5.2) g/dL Globulin (2-4) g/dL Albumin/Globulin Ratio (1-3) Amylase (29-103) U/L Lipase (11.0-82.0) U/L Assess/Plan/Problems-Billing Assessment: 42 up M p/w abdominal pain in setting of alcoholic hepatitis - Patient Problems (1) Alcoholic hepatitis with ascites Comment: MDF >80 portending poor prognosis on steroids appreciate GI consult trend LFTs (2) Hepatitis C Comment: benefit from therapy after alcoholic hepatits resolved (3) Chronic alcoholism Comment: would like to quit SW consult (4) DVT prophylaxis Comment: SCDs in setting of hepatitis and coagulopathy
[2017-11-05] MEDS: cloNIDine TAB* 0.1 MG PO SCH (18:16)
[2017-11-06] MEDS: NS 0.9% 1000 ML* 1,000 ML IV SCH ×2 (01:22→08:30)
[2017-11-06] MEDS: Morphine INJ* 4 MG/ML 1 ML CARPUJECT IV PRN ×4 (02:50→13:57)
[2017-11-06 07:00] LABS: INR 1.96 (0.77-1.02)
[2017-11-06 07:09] LABS: Hematocrit 40 % (42-52); Hemoglobin 13.5 g/dl (14.0-18.0); Mean Corpuscular HGB Conc 34 g/dl (31-36); Mean Corpuscular Hemoglobin 31 pg (27-31); Mean Corpuscular Volume 92 fL (80-94); Mean Platelet Volume 8 um3 (7.4-10.4); Platelet Count 161 10^3/ul (150-450); Red Blood Count 4.34 10^6/ul (4.0-5.4); Red Cell Distribution Width 17 % (10.5-15)
[2017-11-06 07:28] LABS: ABS Basophils 0.1 10^3/ul (0-0.2); ABS Eosinophils 0.1 10^3/ul (0-0.6); ABS Lymphocytes 2.4 10^3/ul (1.0-4.8); ABS Monocytes 1.6 10^3/ul (0-0.8); ABS Neutrophils 9.7 10^3/ul (1.5-7.7); ABS Nucleated RBC 0 10^3/ul; Eosinophil % 0.5 % (0-6); Lymphocyte % 17.4 % (25-47); Nucleated Red Blood Cells % 0.1
[2017-11-06 07:52] LABS: EGFR Non-African American 141.6 (>60)
[2017-11-06] MEDS: Multivitamins/Minerals TAB PO SCH (08:32)
[2017-11-06] MEDS: clonazePAM TAB(*) 1 MG PO SCH ×2 (08:32→13:57)
[2017-11-06] MEDS: Folic Acid TAB* 1 MG PO SCH (08:32)
[2017-11-06] MEDS: Thiamine TAB* 100 MG TAB PO SCH (08:33)
[2017-11-06] MEDS: PrednisoLONE LIQ 3 MG/ML* 15 MG/5 ML UDC PO SCH (08:33)
[2017-11-06 16:12] VITALS: BP 128/81
--- NOTE | 2017-11-07 02:04 | DS ---
CC: Dr. Gil Magallanes; Dr. Jai Ramon * DISCHARGE SUMMARY: DATE OF ADMISSION: 11/02/17 DATE OF DISCHARGE: 11/06/17 PRIMARY CARE PROVIDER: Dr. Gil Magallanes. PRIMARY DIAGNOSES: 1. Alcoholic hepatitis. 2. New diagnosis of hepatitis C. SECONDARY DIAGNOSES: 1. Morbid obesity. 2. Diabetes. 3. Hypertension. 4. Anxiety. 5. Alcohol abuse. MEDICATIONS ON DISCHARGE: Include: 1. Clonidine 0.1 mg in the evening. 2. Clonazepam 1 mg 3 times a day as needed, dispensed 12 tabs. 3. Prednisolone 45 mg daily for 1 month, then to be tapered by primary care provider or bilingual trainer. 4. Oxycodone 10 mg every 6 hours as needed. I dispensed several days supply. PERTINENT LABORATORY DATA: Notable for white blood cell count on discharge of 14, INR on discharge 1.96. Total bilirubin on day of discharge 16.8 down from 19.9, AST on discharge 119, down from 419. ALT on discharge 77, down from 119. Alk phos on discharge 222, down from 298. Hepatitis C antibody is highly reactive. HISTORY OF PRESENT ILLNESS AND HOSPITAL COURSE: This is a 42-year-old man with past medical history of alcohol abuse, presented to the hospital with weakness, nausea, and vomiting, found with alcoholic hepatitis. He was seen in consultation with Gastroenterology, started on oral steroids. He did not have any evidence of encephalopathy on presentation nor did he develop encephalopathy through the course of his hospital stay. His Maddrey discriminant function was greater than 80 on the day of presentation. However, he continued to improve on steroids and with time. New diagnosis of hepatitis C was discussed with the patient. He will need further followup after the resolution of his hepatitis C. The patient's LFTs as indicated above were improving on the day of discharge and he will be discharged to continue steroids for a month and to discuss further tapering after 1 month with primary care provider or bilingual trainer. At followup, please; 1. Direct steroid taper after 1 month. 2. Continue to advise alcohol cessation which the patient seems intent on accomplishing at this point. 3. Discussed hepatitis C therapy after resolution of alcoholic hepatitis. Reasons to return to the hospital including, but not limited to recurrent or worsening symptoms including worsening abdominal pain, nausea, vomiting, fevers , shortness of breath, chest pain, confusion, loss of consciousness, inability to obtain or tolerate medication or bleeding from any source was discussed with the patient and his family. He acknowledged understanding. TIME SPENT: Greater than 60 minutes were spent on the discharge of this patient , greater than half was spent [id number] with the patient. [id number]/[facility] #: [id number] PAMELA
== END 2017-11-06 16:50 | disposition home or self-care (01) | DRG 280 ==
LOC: ED 22:31 → MED 11-03 09:04
PROVIDERS: ADMIT Internal Medicine; ATTEND Internal Medicine
DX: K70.11 Alcoholic hepatitis with ascites (principal); K70.31 Alcoholic cirrhosis of liver with ascites; B19.20 Unspecified viral hepatitis C without hepatic coma; F10.20 Alcohol dependence, uncomplicated; E66.9 Obesity, unspecified; E11.9 Type 2 diabetes mellitus without complications; I10 Essential (primary) hypertension; F41.9 Anxiety disorder, unspecified; F17.210 Nicotine dependence, cigarettes, uncomplicated; E87.6 Hypokalemia; Z83.79 Family history of other diseases of the digestive system; Z68.37 Body mass index [BMI] 37.0-37.9, adult; Z82.49 Family history of ischemic heart disease and other diseases of the circulatory system; Z79.899 Other long term (current) drug therapy
CPT/HCPCS: 36415; 76705; 80048; 80053; 80074; 80076; 81003; 82140; 82150; 82248; 83605; 83690; 85025; 85610; 85730; 86140; 86703; 87040; 90686; A9270-GY; J1170; J2185; J2270; J2405; J3411; J3480; J3490; J7510

== ENCOUNTER 2017-11-22 21:21 | Emergency (ER) | payer OTHER ==
[2017-11-23 00:27] LABS: EGFR Non-African American 117.3 (>60)
[2017-11-23 00:28] LABS: ABS Basophils 0.1 10^3/ul (0-0.2); ABS Eosinophils 0 10^3/ul (0-0.6); ABS Lymphocytes 1.9 10^3/ul (1.0-4.8); ABS Neutrophils 5.6 10^3/ul (1.5-7.7); ABS Nucleated RBC 0 10^3/ul; Eosinophil % 0.1 % (0-6); Hematocrit 32 % (42-52); Hemoglobin 11.1 g/dl (14.0-18.0); Lymphocyte % 22.3 % (25-47); Mean Corpuscular HGB Conc 35 g/dl (31-36); Mean Corpuscular Hemoglobin 33 pg (27-31); Mean Corpuscular Volume 95 fL (80-94); Mean Platelet Volume 8 um3 (7.4-10.4); Nucleated Red Blood Cells % 0.1; Platelet Count 130 10^3/ul (150-450); Red Blood Count 3.39 10^6/ul (4.0-5.4); Red Cell Distribution Width 20 % (10.5-15); White Blood Count 8.7 10^3/ul (3.5-10.8)
[2017-11-23 00:30] LABS: INR 1.41 (0.77-1.02)
[2017-11-23 00:31] LABS: Urine Appearance Clear; Urine Blood Negative (Negative); Urine Color Amber; Urine Ketones Negative (Negative); Urine Protein Negative (Negative); Urine Urobilinogen Positive (Negative)
[2017-11-23] MEDS ORDERED: Furosemide IV* 10 MG/ML VIAL (40 MG) IV SLOW PU ONE (01:02)
[2017-11-23] MEDS ORDERED: Morphine INJ* 4 MG/ML 1 ML CARPUJECT IV ONE (01:11)
[2017-11-23] MEDS ORDERED: Gabapentin CAP(*) 100 MG PO ONE (02:37)
--- NOTE | 2017-11-23 03:48 | ED ---
Lety Ruiz Edward, scribed for Jose De Jesus Taveras MD on 11/22/17 at 2316 . Lower Extremity - HPI Summary HPI Summary: 42 y/o male presents to the ED c/o severe bilateral LE swelling and pain for 4- 5 days. The pain is worse in the ankles, aggravated with movement, weight bearing and ambulation, rated at 10/10 in severity at triage. Associated sx: lower back spasms aggravated with position change that "hurts his kidneys". Denies SOB. Pt had these sx once before. PMHx recently dx with liver failure, COPD, anxiety, depression, PTSD. - History of Current Complaint Chief Complaint: EDExtremityLower Stated Complaint: FEET SWELLING, BACK/FLANK PAIN Hx Obtained From: Patient Onset of Pain: Days Onset/Duration: Still Present Severity Currently: Severe Pain Intensity: 10 Pain Scale Used: 0-10 Numeric Timing: Constant Location: Is Diffuse - Bilateral LE swelling and pain Associated Signs And Symptoms: Positive: Swelling, Other - lower back spasms Aggravating Factor(s): Ambulation, Movement, Weight Bearing Alleviating Factor(s): Nothing - Allergies/Home Medications Allergies/Adverse Reactions: Allergies Allergy/AdvReac Type Severity Reaction Status Date / Time No Known Allergies Allergy Verified 11/22/17 23:21 PMH/Surg Hx/FS Hx/Imm Hx Previously Healthy: No Endocrine/Hematology History: Reports: Hx Diabetes, Hx Thyroid Disease - hypothyroidism Cardiovascular History: Reports: Hx Hypercholesterolemia, Hx Hypertension Denies: Hx Pacemaker/ICD Respiratory History: Reports: Hx Asthma, Hx Chronic Obstructive Pulmonary Disease (COPD) - getting there, Hx Sleep Apnea GI History: Denies: Hx Ulcer History: Reports: Other Problems/Disorders - Liver failure Denies: Hx Renal Disease Sensory History: Denies: Hx Contacts or Glasses, Hx Hearing Aid Opthamlomology History: Denies: Hx Contacts or Glasses Psychiatric History: Reports: Hx Anxiety, Hx Depression, Hx Post Traumatic Stress Disorder, Hx Bipolar Disorder, Hx Substance Abuse - in recovery Denies: Hx Panic Disorder - Immunization History Date of Tetanus Vaccine: unknown Date of Influenza Vaccine: none Infectious Disease History: Yes Infectious Disease History: Denies: Hx Hepatitis, Hx Human Immunodeficiency Virus (HIV), Traveled Outside the [place] in Last 30 Days - Family History Known Family History: Positive: Cardiac Disease, Diabetes, Other - CVA - Social History Alcohol Use: Daily Alcohol Amount: Pt stated that he has 4-5 24 Oz cans per day. Hx Substance Use: Yes Substance Use Type: Reports: Marijuana Substance Use Comment - Amount & Last Used: weekly Hx Tobacco Use: Yes Smoking Status (MU): Heavy Every Day Tobacco Smoker Type: Cigarettes Review of Systems Constitutional: Negative Eyes: Negative ENT: Negative Cardiovascular: Negative Respiratory: Negative Gastrointestinal: Negative Genitourinary: Negative Positive: Arthralgia - bilateral LE pain, mostly in the ankles. lower back spasms, Edema - bilateral LE Skin: Negative Neurological: Negative Psychological: Normal All Other Systems Reviewed And Are Negative: Yes Physical Exam - Summary Physical Exam Summary: Appearance: Appears fatigued. Skin: Warm. Mild jaundiced. Eyes: Positive scleral icterus bilaterally ENT: Normal. Neck: Supple, nontender. Respiratory: Clear to auscultation. mild respiratory crackles on left. Cardiovascular: Normal S1, S2. No murmurs. Normal distal pulses in tibial and radial bilaterally. Abdomen: Dullness to percussion throughout the ABD. No obvious hepatomegaly. Positive ascites. No tenderness. Musculoskeletal: Bilateral non-pitting edema from feet to knees, painful to palpation. Equal bilaterallly. Neurological: Normal, A&Ox3 Psychiatric: Normal Triage Information Reviewed: Yes Vital Signs On Initial Exam: Initial Vitals Temp Pulse Resp BP Pulse Ox 98.8 F 81 18 148/86 98 11/22/17 21:41 11/22/17 21:41 11/22/17 21:41 11/22/17 21:41 11/22/17 21:41 Vital Signs Reviewed: Yes Diagnostics - Vital Signs Vital Signs Temp Pulse Resp BP Pulse Ox 11/22/17 21:41 98.8 F 81 18 148/86 98 - Laboratory Lab Results: Lab Results 11/23/17 11/23/17 11/23/17 Range/Units 00:00 00:00 00:00 WBC 8.7 (3.5-10.8) 10^3/ul RBC 3.39 L (4.0-5.4) 10^6/ul Hgb 11.1 L (14.0-18.0) g/dl Hct 32 L (42-52) % MCV 95 H (80-94) fL MCH 33 H (27-31) pg MCHC 35 (31-36) g/dl RDW 20 H (10.5-15) % Plt Count 130 L (150-450) 10^3/ul MPV 8 (7.4-10.4) um3 Neut % (Auto) 64.5 (38-83) % Lymph % (Auto) 22.3 L (25-47) % Terry % (Auto) 11.6 H (1-9) % Eos % (Auto) 0.1 (0-6) % Baso % (Auto) 1.5 (0-2) % Absolute Neuts (auto) 5.6 (1.5-7.7) 10^3/ul Absolute Lymphs (auto) 1.9 (1.0-4.8) 10^3/ul Absolute Monos (auto) 1.0 H (0-0.8) 10^3/ul Absolute Eos (auto) 0 (0-0.6) 10^3/ul Absolute Basos (auto) 0.1 (0-0.2) 10^3/ul Absolute Nucleated RBC 0 10^3/ul Nucleated RBC % 0.1 INR (Anticoag Therapy) (0.77-1.02) APTT (26.0-36.3) seconds Sodium 135 (133-145) mmol/L Potassium 3.5 (3.5-5.0) mmol/L Chloride 104 (101-111) mmol/L Carbon Dioxide 27 (22-32) mmol/L Anion Gap 4 (2-11) mmol/L BUN 9 (6-24) mg/dL Creatinine 0.73 (0.67-1.17) mg/dL Est GFR ( Amer) 150.8 (>60) Est GFR (Non-Af Amer) 117.3 (>60) BUN/Creatinine Ratio 12.3 (8-20) Glucose 127 H (70-100) mg/dL Lactic Acid 1.9 (0.5-2.0) mmol/L Calcium 8.3 L (8.6-10.3) mg/dL Magnesium 2.1 (1.9-2.7) mg/dL Total Bilirubin 6.80 H (0.2-1.0) mg/dL AST 63 H (13-39) U/L ALT 37 (7-52) U/L Alkaline Phosphatase 153 H (34-104) U/L Ammonia (16-53) mol/L B-Natriuretic Peptide ( - 100) pg/mL Total Protein 6.6 (6.4-8.9) g/dL Albumin 2.4 L (3.2-5.2) g/dL Globulin 4.2 H (2-4) g/dL Albumin/Globulin Ratio 0.6 L (1-3) Lipase 30 (11.0-82.0) U/L Urine Color Urine Appearance Urine pH (5-9) Ur Specific Langley (1.010-1.030) Urine Protein (Negative) Urine Ketones (Negative) Urine Blood (Negative) Urine Nitrate (Negative) Urine Bilirubin (Negative) Urine Urobilinogen (Negative) Ur Leukocyte Esterase (Negative) Urine Glucose (Negative) 11/23/17 11/23/17 11/23/17 Range/Units 00:00 00:00 00:20 WBC (3.5-10.8) 10^3/ul RBC (4.0-5.4) 10^6/ul Hgb (14.0-18.0) g/dl Hct (42-52) % MCV (80-94) fL MCH (27-31) pg MCHC (31-36) g/dl RDW (10.5-15) % Plt Count (150-450) 10^3/ul MPV (7.4-10.4) um3 Neut % (Auto) (38-83) % Lymph % (Auto) (25-47) % Terry % (Auto) (1-9) % Eos % (Auto) (0-6) % Baso % (Auto) (0-2) % Absolute Neuts (auto) (1.5-7.7) 10^3/ul Absolute Lymphs (auto) (1.0-4.8) 10^3/ul Absolute Monos (auto) (0-0.8) 10^3/ul Absolute Eos (auto) (0-0.6) 10^3/ul Absolute Basos (auto) (0-0.2) 10^3/ul Absolute Nucleated RBC 10^3/ul Nucleated RBC % INR (Anticoag Therapy) 1.41 H (0.77-1.02) APTT 31.5 (26.0-36.3) seconds Sodium (133-145) mmol/L Potassium (3.5-5.0) mmol/L Chloride (101-111) mmol/L Carbon Dioxide (22-32) mmol/L Anion Gap (2-11) mmol/L BUN (6-24) mg/dL Creatinine (0.67-1.17) mg/dL Est GFR ( Amer) (>60) Est GFR (Non-Af Amer) (>60) BUN/Creatinine Ratio (8-20) Glucose (70-100) mg/dL Lactic Acid (0.5-2.0) mmol/L Calcium (8.6-10.3) mg/dL Magnesium (1.9-2.7) mg/dL Total Bilirubin (0.2-1.0) mg/dL AST (13-39) U/L ALT (7-52) U/L Alkaline Phosphatase (34-104) U/L Ammonia 44 (16-53) mol/L B-Natriuretic Peptide 588 H ( - 100) pg/mL Total Protein (6.4-8.9) g/dL Albumin (3.2-5.2) g/dL Globulin (2-4) g/dL Albumin/Globulin Ratio (1-3) Lipase (11.0-82.0) U/L Urine Color Jessica Urine Appearance Clear Urine pH 7.0 (5-9) Ur Specific [place] 1.020 (1.010-1.030) Urine Protein Negative (Negative) Urine Ketones Negative (Negative) Urine Blood Negative (Negative) Urine Nitrate Negative (Negative) Urine Bilirubin 1+ (Negative) Urine Urobilinogen Positive H (Negative) Ur Leukocyte Esterase Negative (Negative) Urine Glucose Negative (Negative) Result Diagrams: 11/23/17 00:00 11/23/17 00:00 Lab Statement: Any lab studies that have been ordered have been reviewed, and results considered in the medical decision making process. - Radiology CXR Radiology Interpretation Completed By: ED Physician - Mild cardiomegaly. Diffuse congestion. Possible left pleural effusion. Lower Extremity Course/Dx - Course Assessment/Plan: pt feels better after meds here in ED, pt seen ambulating normally here in ED, no resp distress. likely lymphedema causing pain in LE b/l , instructged to wear compression garments adn to fu with GI physician. agrees to and understands instructions - Diagnoses Provider Diagnoses: Lymphedema Discharge - Discharge Plan Condition: Stable Disposition: HOME Prescriptions: Compression Socks, Medium [Futuro Restoring] 1 each MC DAILY #4 each oxyCODONE TAB* [Roxycodone TAB 5 mg*] 5 mg PO Q6H PRN #10 tab MDD 4 TABS PRN Reason: Pain - Moderate To Severe Patient Education Materials: Lymphedema (ED) Referrals: Gil Magallanes MD [Primary Care Provider] - Wily Carranza MD [Medical Doctor] - 3 Days Additional Instructions: Please make a follow-up appointment with Dr. Carranza ([facility]) in 3-5 days. Wear the compression stockings from your feet to your knees on a daily basis. If current symptoms worsen or new symptoms develop, please immediately return to the Emergency Department. The documentation as recorded by the Lety carreon Edward accurately reflects the service I personally performed and the decisions made by me, Jose De Jesus Taveras MD.
[2017-11-23 04:15] VITALS: BP 131/84
--- NOTE | 2017-11-23 10:42 | RAD ---
INDICATION: Wheezing COMPARISON: Chest x-ray dated July 15, 2013 TECHNIQUE: Single AP view of the chest was obtained. FINDINGS: The heart and mediastinum exhibit normal size and contour. The lungs are grossly clear. There is no evidence of a large pleural effusion. Visualized bones are normal for the patient's age. IMPRESSION: No radiographic evidence for acute cardiopulmonary abnormality on this single AP view chest x-ray.
== END 2017-11-23 04:15 | disposition home or self-care (01) ==
LOC: ED 21:21
DX: I89.0 Lymphedema, not elsewhere classified (principal); F17.210 Nicotine dependence, cigarettes, uncomplicated
CPT/HCPCS: 36415; 71045; 80053; 81003; 82140; 83605; 83690; 83735; 83880; 85025; 85610; 85730; 96374; 96375; 99284; A9270-GY; J1940; J2270

== ENCOUNTER 2018-11-03 13:55 | Inpatient (IN) | payer OTHER ==
[2018-11-03] MEDS ORDERED: Thiamine IV* 100 MG, Folic Acid IV* 1 MG, Multiple Vitamin IV ADULT* 10 ML in NS 0.9% 1... IV ONE (16:05)
[2018-11-03 17:02] LABS: Activated Partial Thrombo Time 33.1 seconds (26.0-36.3); INR 1.04 (0.77-1.02)
[2018-11-03 17:07] LABS: Barbiturates Urine Screen None Detected (None Detect); Benzodiazepine Urine Screen None Detected (None Detect); Urine Cannabinoids Screen Presumptive Positive (None Detect)
[2018-11-03 17:13] LABS: Hematocrit 38 % (42-52); Hemoglobin 12.8 g/dl (14.0-18.0); Mean Corpuscular HGB Conc 34 g/dl (31-36); Mean Corpuscular Hemoglobin 32 pg (27-31); Mean Corpuscular Volume 94 fL (80-94); Mean Platelet Volume 7.5 fL (7.4-10.4); Platelet Count 112 10^3/ul (150-450); Red Blood Count 4.03 10^6/ul (4.00-5.40); Red Cell Distribution Width 16 % (10.5-15)
[2018-11-03 17:24] LABS: Albumin 3.8 g/dL (3.2-5.2); BUN/Creatinine Ratio 8.7 (8-20); Calcium 9.2 mg/dL (8.6-10.3); EGFR African American 150.7 (>60); EGFR Non-African American 124.6 (>60); Magnesium 2.2 mg/dL (1.9-2.7); Potassium 3.9 mmol/L (3.5-5.0); Total Bilirubin 0.9 mg/dL (0.2-1.0); Total Protein 7.8 g/dL (6.4-8.9)
[2018-11-03 17:35] LABS: TSH (Thyroid Stimulating Horm) 4.02 mcIU/mL (0.34-5.60)
[2018-11-03 17:53] LABS: ABS Basophils 0 10^3/ul (0-0.2); ABS Eosinophils 0.1 10^3/ul (0-0.6); ABS Lymphocytes 3.1 10^3/ul (1.0-4.8); ABS Monocytes 1.6 10^3/ul (0-0.8); ABS Neutrophils 5.2 10^3/ul (1.5-7.7); ABS Nucleated RBC 0 10^3/ul; Eosinophil % 0.9 %; Lymphocyte % 30.7 %; Nucleated Red Blood Cells % 0.1
[2018-11-03] MEDS ORDERED: LORazepam TAB(*) 1 MG PO ONE (18:05)
[2018-11-03] MEDS ORDERED: Ondansetron INJ* 2 MG/ML VIAL IV PRN (20:22)
[2018-11-03] MEDS ORDERED: Acetaminophen TAB* 325 MG PO PRN (20:22)
[2018-11-03] MEDS ORDERED: Pantoprazole TAB * 40 MG TAB PO ONE (20:26)
[2018-11-03] MEDS ORDERED: NS 0.9% 1000 ML** 1,000 ML IV SCH (20:30)
[2018-11-03] MEDS ORDERED: Diazepam TAB(*) 5 MG PO SCH (21:00)
--- NOTE | 2018-11-03 22:18 | HP ---
CC: [facility].* HISTORY AND PHYSICAL: DATE OF ADMISSION: 11/03/18 PRIMARY CARE PROVIDER: [facility]. CHIEF COMPLAINT: Request for detox. HISTORY OF PRESENT ILLNESS: Mr. Corral is a 43-year-old male who presents to the emergency room on 11/03/18 with request to help safely detox. He states that he is afraid to undergo this process at home alone. He states he has been drinking approximately a pint of hard liquor per day. He has been doing this for approximately the last 5 years. He has gone through withdrawal in the past , but never had any alcohol withdrawal seizures. He has had DTs in the past, however. He states otherwise he has been doing okay. He does admit to abdominal discomfort in the right upper quadrant. He feels as if there is a throbbing sensation in the right flank. He also feels stabbing pain between the right upper and right lower quadrants on occasion when he takes deep breath. He also feels he has been having muscle cramping. At this point, the patient is not showing any signs of active withdrawal, but states again that he wishes to go through the process of withdrawal. He states that he feels he is better connected into the community with and now being at [facility] for care. PAST MEDICAL HISTORY: 1. Diet-controlled diabetes. 2. Hypertension. 3. Anxiety. 4. Hepatitis C - patient states treatment has been ordered for him and is due to start in approximately 1 month. PAST SURGICAL HISTORY: None. MEDICATIONS: None. ALLERGIES: None. FAMILY HISTORY: Mom is living. She is 72. She has a history of CVAs, coronary disease and diabetes. Dad is at the age of 52 of CHF. SOCIAL HISTORY: He smokes one half pack per day. He smokes for approximately 30 years. He drinks alcohol as above. He does use marijuana as well as cocaine. He is not working, but does take care of his mother. He is not . He has 1 child. He indicates that his brother, Hernán, would be his healthcare proxy. REVIEW OF SYSTEMS: A complete 11-system review of systems is obtained. Pertinent positives and negatives are as per HPI, and in addition, the patient does state that he has an increased cough recently that he is attributing to his smoking. He is short of breath on occasion. He admits to bright red blood in the toilet, but states he has hemorrhoids. He states he has also vomited 4 to 5 times a day for quite some time now. Anxiety is also a huge problem for him. The rest of the review of systems is negative. PHYSICAL EXAMINATION GENERAL: The patient is a well-developed middle aged obese male seen sitting on the edge of the stretcher, in no acute distress. VITAL SIGNS: Blood pressure 139/88, pulse 96, respirations 29, temp 99, O2 sat 91% on room air. HEENT: Pupils are equal and round. Extraocular muscles are intact. Oropharynx is clear. Oral mucosa is moist. The patient does have a tongue piercing. There is no submandibular, cervical or supraclavicular adenopathy. Thyroid is not enlarged. No thyroid nodules noted. PULMONARY: Lungs are clear to auscultation bilaterally. CARDIAC: Normal S1 and S2. Heart rate is mildly tachycardic in the 90s. There is no lower extremity edema. There are no murmurs. ABDOMEN: Bowel sounds present. Abdomen is obese, soft, nondistended. He is mildly tender to palpation in the right upper quadrant as well as the left upper quadrant. MUSCULOSKELETAL: There is no cyanosis or clubbing of the digits. There is full active range of motion of all 4 extremities. The patient just walked back from the bathroom with steady fluid gait. NEURO: Cranial nerves II through XII are grossly intact. Sensation is intact to light touch throughout. Strength is 5/5 and symmetric in both upper and lower extremities bilaterally. SKIN: Warm and dry. There are no rashes. There are numerous tattoos scattered on the patient's body. PSYCHIATRIC: The patient is alert. He is oriented x3. Affect appears appropriate. DIAGNOSTIC STUDIES/LAB DATA: WBC 10.0, hemoglobin 12.8, hematocrit 38, platelets 112. INR 1.04. Sodium 139, potassium 3.9, chloride 105, CO2 29, BUN 6, creatinine 0.69, glucose 110, calcium 9.2, magnesium 2.2. Bilirubin 0.9, AST 61, ALT 28, alk phos 95, ammonia 96, albumin 3.8. TSH 4.02. Serum alcohol 206. Urine drug screen is positive for cocaine and cannabinoids. ASSESSMENT AND PLAN: Mr. Corral is a 43-year-old male with a longstanding history of alcohol abuse who presents to the emergency room with request for safe detox. 1. Alcohol abuse, not yet in alcohol withdrawal. At this point, the patient will be admitted to the hospital to safely go through alcohol withdrawal given his history of difficult withdrawal episodes in the past. He states he has had DTs in the past, but not seizures. At this point, the patient will be started on Valium 5 mg p.o. q.8 hours x3 doses, followed by Valium 5 mg p.o. q.12 hours x3 doses. He will also be on the WAM protocol q.2 hours with Ativan as needed. Thiamine, folic acid, and a multivitamin will be provided. The patient will have Zofran available for nausea. Social Work consult will be requested to help get the patient in context with any further resources in the community. 2. Anemia and thrombocytopenia. This is likely secondary to the patient's longstanding history of alcohol abuse. His hemoglobin is in range of where it was in October 2017. His platelet count is slightly lower than where he had been in the past though still generally within range. 3. Elevated aspartate aminotransferase. This may be due to longstanding alcohol abuse versus the hepatitis C. His liver enzymes are improved from October of last year when he was admitted with acute alcoholic hepatitis. The patient does have an elevated ammonia level of 96; however, his mental status is very clear at this point, and therefore I will hold off on lactulose. 4. Diet-controlled diabetes. The patient has been ordered a consistent carb diet, hemoglobin A1c will be added to the labs from the emergency room, daily fingerstick glucoses will be checked. 5. Anxiety. For now, the patient will be receiving standing Valium as well as p.r.n. Ativan. Ultimately, he will benefit from a longer-term treatment for his anxiety such as an SSRI or BuSpar. 6. DVT prophylaxis: According to the Adult Thrombosis Prophylaxis Risk Factor Assessment Guide, the patient has a total risk factor score of 2 making him moderate risk. Heparin 5000 units subcutaneous q.12 hours will be utilized as DVT prophylaxis. 7. Code status is full. TIME SPENT: Fifty-five minutes was spent admitting this patient. [id number]/[facility] #: [id number] PAMELA
[2018-11-03] MEDS: Heparin VIAL(*) 5000 UNITS/ML VIAL (FIVE THOUSAND) SUBCUT SCH (23:08)
[2018-11-04] MEDS: LORazepam TAB(*) 0.5 MG PO PRN ×6 (00:11→22:46)
--- NOTE | 2018-11-04 01:28 | ED ---
Substance Abuse/Use - HPI Summary HPI Summary: Patient with history of chronic EtOH complains of wanting to detox. Also complains of feeling anxious. Playing patient claims to have had 2 large 32 ounce mixed drinks with 2 beers today. Last drink just prior to arrival. States history of chronic EtOH 30 years. Patient states he hasn't slept in 2 days, history of insomnia. Also admits to use of cocaine and crack last night. Use of marijuana today. Denies any symptoms of illness including HARRIS, diaphoresis, N/V, hallucinations, fever, cough, sore throat, CP, SOB, N/V/D, abdominal pain, change in urine, change in BM. Denies SI, HI. Medical history is cirrhosis, hep C, chronic EtOH, COPD. Positive smoker. - History Of Current Complaint Chief Complaint: EDDetoxRequest Stated Complaint: POSS DETOX Time Seen by Provider: 11/03/18 15:37 Hx Obtained From: Patient Onset/Duration of Drug/ETOH Abuse: Years Timing Of Abuse: Daily Character: Anxious Aggravating Factor(s): Nothing Alleviating Factor(s): Nothing Associated Signs And Symptoms: Sleep Disturbance - Allergies/Home Medications Allergies/Adverse Reactions: Allergies Allergy/AdvReac Type Severity Reaction Status Date / Time No Known Allergies Allergy Verified 11/03/18 14:12 PMH/Surg Hx/FS Hx/Imm Hx Endocrine/Hematology History: Reports: Hx Diabetes, Hx Thyroid Disease - hypothyroidism Denies: Hx Anticoagulant Therapy, Hx Blood Disorders, Hx Blood Transfusions, Hx Bone Marrow Disease, Hx Systemic Lupus Erythematosus, Hx Sickle Cell Disease , Hx Anemia, Hx Unexplained Bleeding, Other Endocrine/Hematological Disorders Cardiovascular History: Reports: Hx Hypercholesterolemia, Hx Hypertension Denies: Hx Aneurysm, Hx Angina, Hx Angioplasty, Hx Auto Implanted Cardiovert Defib, Hx Cardiac Arrest, Hx Cardiomegaly, Hx Congenital Heart Disease, Hx Congestive Heart Failure, Hx Coronary Artery Disease, Hx Deep Vein Thrombosis, Hx Embolism, Hx Hypotension, Hx Pacemaker/ICD, Hx Peripheral Vascular Disease, Hx Rheumatic Fever, Hx Syncope, Hx Valvular Heart Disease, Other Cardiovascular Problems/Disorders Respiratory History: Reports: Hx Asthma, Hx Chronic Obstructive Pulmonary Disease (COPD) - getting there, Hx Sleep Apnea Denies: Hx Bronchopulmonary Dysplasia, Hx Chronic Bronchitis, Hx Cystic Fibrosis, Hx Lung Cancer, Hx Pleural Effusion, Hx Pneumonia, Hx Pulmonary Edema , Hx Pulmonary Embolism, Hx Seasonal Allergies, Other Respiratory Problems/ Disorders GI History: Denies: Hx Cirrhosis, Hx Crohn's Disease, Hx Diverticulosis, Hx Gall Bladder Disease, Hx Gastroesophageal Reflux Disease, Hx Gastrointestinal Bleed, Hx Hiatal Hernia, Hx Irritable Bowel, Hx Jaundice, Hx Obstructive Bowel, Hx Ileostomy, Hx Pyloric Stenosis, Hx Ulcer, Other GI Disorders History: Reports: Hx Acute Renal Failure, Other Problems/Disorders - Liver failure Denies: Hx Benign Prostatic Hyperplasia, Hx Chronic Renal Failure, Hx Dialysis, Hx Kidney Infection, Hx Kidney Stones, Hx Renal Disease Musculoskeletal History: Denies: Hx Arthritis, Hx Back Problems, Hx Bursitis, Hx Congenital Bone Abnormalities, Hx Fibromyalgia, Hx Gout, Hx Orthopedic Injury, Hx Osteoporosis, Hx Scoliosis, Hx Tendonitis, Other Musculoskeletal History Sensory History: Denies: Hx Cataracts, Hx Contacts or Glasses, Hx Eye Injury, Hx Eye Prosthesis, Hx Glaucoma, Hx Legally Blind, Hx Macular Degeneration, Hx Vision Problem, Hx Deafness, Hx Hearing Aid, Hx Hearing Problem, Other Sensory Impairments Opthamlomology History: Denies: Hx Cataracts, Hx Contacts or Glasses, Hx Eye Injury, Hx Eye Prosthesis, Hx Glaucoma, Hx Legally Blind, Hx Macular Degeneration, Hx Vision Problem, Other Sensory Impairments Neurological History: Denies: Hx Dementia, Hx Developmental Delay, Hx Headaches, Hx Migraine, Hx Nerve Disease, Hx Seizures, Hx Spinal Cord Injury, Hx Transient Ischemic Attacks (TIA), Other Neuro Impairments/Disorders Psychiatric History: Reports: Hx Anxiety, Hx Depression, Hx Post Traumatic Stress Disorder, Hx Bipolar Disorder, Hx Substance Abuse - in recovery Denies: Hx Attention Deficit Hyperactivity Disorder, Hx Autism, Hx Eating Disorder, Hx Oppositional [place] Disorder, Hx Panic Disorder, Hx Inpatient Treatment, Hx Community Mental Health Tx, Hx Schizophrenia, Hx Suicide Attempt, Hx of Violent Episodes Against Others, Other Psychiatric Issues/Disorders - Cancer History Hx Hematologic Symptoms: No Hx Chemotherapy: No Hx Radiation Therapy: No Hx Palliative Cancer Treatment: No - Surgical History Hx Anesthesia Reactions: No - Immunization History Date of Tetanus Vaccine: unknown Date of Influenza Vaccine: none Infectious Disease History: No Infectious Disease History: Reports: Hx Hepatitis - HepC Denies: Hx Clostridium Difficile, Hx Human Immunodeficiency Virus (HIV), Hx of Known/Suspected MRSA, Hx Shingles, Hx Tuberculosis, History Other Infectious Disease, Traveled Outside the [place] in Last 30 Days - Family History Known Family History: Positive: Cardiac Disease, Diabetes, Other - CVA - Social History Alcohol Use: Daily Alcohol Amount: Pt stated that he has 8-12 24 Oz cans per day/pint liqour Hx Substance Use: Yes Substance Use Type: Reports: Cocaine, Marijuana Substance Use Comment - Amount & Last Used: when its available Hx Tobacco Use: Yes Smoking Status (MU): Heavy Every Day Tobacco Smoker Type: Cigarettes Have You Smoked in the Last Year: Yes Review of Systems Constitutional: Negative Eyes: Negative ENT: Negative Cardiovascular: Negative Respiratory: Negative Gastrointestinal: Negative Genitourinary: Negative Musculoskeletal: Negative Skin: Negative Neurological: Negative Positive: Anxious All Other Systems Reviewed And Are Negative: Yes Physical Exam - Summary Physical Exam Summary: Patient is alert and oriented, clinically sober. Physical exam unremarkable. No evidence of trauma, diaphoresis, N/V. Some mild anxiety. Triage Information Reviewed: Yes Vital Signs On Initial Exam: Initial Vitals Temp Pulse Resp BP Pulse Ox 99 F 102 16 187/113 99 11/03/18 14:08 11/03/18 14:08 11/03/18 14:08 11/03/18 14:08 11/03/18 14:08 Vital Signs Reviewed: Yes Appearance: Positive: Well-Appearing Skin: Positive: Warm Head/Face: Positive: Normal Head/Face Inspection Eyes: Positive: Normal ENT: Positive: Normal ENT inspection Neck: Positive: Supple Respiratory/Lung Sounds: Positive: Clear to Auscultation Cardiovascular: Positive: Normal Abdomen Description: Positive: Nontender Musculoskeletal: Positive: Normal Neurological: Positive: Normal Psychiatric: Positive: Normal AVPU Assessment: Alert - [place] Coma Scale Best Eye Response: 4 - Spontaneous Best Motor Response: 6 - Obeys Commands Best Verbal Response: 5 - Oriented Coma Scale Total: 15 Diagnostics - Vital Signs Vital Signs Temp Pulse Resp BP Pulse Ox 11/03/18 20:00 96 18 97 11/03/18 19:49 110 18 132/84 95 11/03/18 19:19 91 17 144/95 97 11/03/18 19:00 90 24 96 11/03/18 18:49 98 29 139/88 91 11/03/18 18:15 14 11/03/18 17:19 31 140/84 11/03/18 17:00 102 33 96 11/03/18 16:49 101 13 143/85 98 11/03/18 16:35 101 21 159/101 96 11/03/18 16:00 103 20 96 11/03/18 15:50 99 99 11/03/18 15:49 102 164/100 99 11/03/18 14:08 99 F 102 16 187/113 99 - Laboratory Lab Results: Lab Results 11/03/18 11/03/18 11/03/18 Range/Units 15:39 15:39 15:39 WBC 10.0 (3.5-10.8) 10^3/ul RBC 4.03 (4.00-5.40) 10^6/ul Hgb 12.8 L (14.0-18.0) g/dl Hct 38 L (42-52) % MCV 94 (80-94) fL MCH 32 H (27-31) pg MCHC 34 (31-36) g/dl RDW 16 H (10.5-15) % Plt Count 112 L (150-450) 10^3/ul MPV 7.5 (7.4-10.4) fL Neut % (Auto) 52.4 % Lymph % (Auto) 30.7 % [place] % (Auto) 15.6 % Eos % (Auto) 0.9 % Baso % (Auto) 0.4 % Absolute Neuts (auto) 5.2 (1.5-7.7) 10^3/ul Absolute Lymphs (auto) 3.1 (1.0-4.8) 10^3/ul Absolute Monos (auto) 1.6 H (0-0.8) 10^3/ul Absolute Eos (auto) 0.1 (0-0.6) 10^3/ul Absolute Basos (auto) 0 (0-0.2) 10^3/ul Absolute Nucleated RBC 0 10^3/ul Nucleated RBC % 0.1 INR (Anticoag Therapy) (0.77-1.02) APTT (26.0-36.3) seconds Sodium 139 (135-145) mmol/L Potassium 3.9 (3.5-5.0) mmol/L Chloride 105 (101-111) mmol/L Carbon Dioxide 29 (22-32) mmol/L Anion Gap 5 (2-11) mmol/L BUN 6 (6-24) mg/dL Creatinine 0.69 (0.67-1.17) mg/dL Est GFR ( Amer) 150.7 (>60) Est GFR (Non-Af Amer) 124.6 (>60) BUN/Creatinine Ratio 8.7 (8-20) Glucose 110 H (70-100) mg/dL Hemoglobin A1c 5.1 (4.0-5.6) % Calcium 9.2 (8.6-10.3) mg/dL Magnesium 2.2 (1.9-2.7) mg/dL Total Bilirubin 0.90 (0.2-1.0) mg/dL AST 61 H (13-39) U/L ALT 28 (7-52) U/L Alkaline Phosphatase 95 (34-104) U/L Ammonia (16-53) mcmol/L Total Protein 7.8 (6.4-8.9) g/dL Albumin 3.8 (3.2-5.2) g/dL Globulin 4.0 (2-4) g/dL Albumin/Globulin Ratio 1.0 (1-3) TSH 4.02 (0.34-5.60) mcIU/mL Urine Opiates Screen (None Detect) Ur Barbiturates Screen (None Detect) Ur Phencyclidine Scrn (None Detect) Ur Amphetamines Screen (None Detect) U Benzodiazepines Scrn (None Detect) Urine Cocaine Screen (None Detect) U Cannabinoids Screen (None Detect) Serum Alcohol 206 H (<10) mg/dL 11/03/18 11/03/18 11/03/18 Range/Units 15:40 15:40 16:26 WBC (3.5-10.8) 10^3/ul RBC (4.00-5.40) 10^6/ul Hgb (14.0-18.0) g/dl Hct (42-52) % MCV (80-94) fL MCH (27-31) pg MCHC (31-36) g/dl RDW (10.5-15) % Plt Count (150-450) 10^3/ul MPV (7.4-10.4) fL Neut % (Auto) % Lymph % (Auto) % [place] % (Auto) % Eos % (Auto) % Baso % (Auto) % Absolute Neuts (auto) (1.5-7.7) 10^3/ul Absolute Lymphs (auto) (1.0-4.8) 10^3/ul Absolute Monos (auto) (0-0.8) 10^3/ul Absolute Eos (auto) (0-0.6) 10^3/ul Absolute Basos (auto) (0-0.2) 10^3/ul Absolute Nucleated RBC 10^3/ul Nucleated RBC % INR (Anticoag Therapy) 1.04 H (0.77-1.02) APTT 33.1 (26.0-36.3) seconds Sodium (135-145) mmol/L Potassium (3.5-5.0) mmol/L Chloride (101-111) mmol/L Carbon Dioxide (22-32) mmol/L Anion Gap (2-11) mmol/L BUN (6-24) mg/dL Creatinine (0.67-1.17) mg/dL Est GFR ( Amer) (>60) Est GFR (Non-Af Amer) (>60) BUN/Creatinine Ratio (8-20) Glucose (70-100) mg/dL Hemoglobin A1c (4.0-5.6) % Calcium (8.6-10.3) mg/dL Magnesium (1.9-2.7) mg/dL Total Bilirubin (0.2-1.0) mg/dL AST (13-39) U/L ALT (7-52) U/L Alkaline Phosphatase (34-104) U/L Ammonia 96 H (16-53) mcmol/L Total Protein (6.4-8.9) g/dL Albumin (3.2-5.2) g/dL Globulin (2-4) g/dL Albumin/Globulin Ratio (1-3) TSH (0.34-5.60) mcIU/mL Urine Opiates Screen None detected (None Detect) Ur Barbiturates Screen None detected (None Detect) Ur Phencyclidine Scrn None detected (None Detect) Ur Amphetamines Screen None detected (None Detect) U Benzodiazepines Scrn None detected (None Detect) Urine Cocaine Screen Presumptive positive A (None Detect) U Cannabinoids Screen Presumptive positive A (None Detect) Serum Alcohol (<10) mg/dL Result Diagrams: 11/03/18 15:39 11/03/18 15:39 Lab Statement: Any lab studies that have been ordered have been reviewed, and results considered in the medical decision making process. Course/Dx - Course Course Of Treatment: Patient with history of chronic EtOH complains of wanting to detox. Also complains of feeling anxious. Playing patient claims to have had 2 large 32 ounce mixed drinks with 2 beers today. Last drink just prior to arrival. States history of chronic EtOH 30 years. Patient states he hasn't slept in 2 days, history of insomnia. Also admits to use of cocaine and crack last night. Use of marijuana today. Denies any symptoms of illness including HARRIS, diaphoresis, N/V, hallucinations, fever, cough, sore throat, CP, SOB, N/V/D , abdominal pain, change in urine, change in BM. Denies SI, HI. Medical history is cirrhosis, hep C, chronic EtOH, COPD. Positive smoker. Physical exam:Patient is alert and oriented, clinically sober. Physical exam unremarkable. No evidence of trauma, diaphoresis, N/V. Some mild anxiety. Vital signs within normal limits. Ammonia 96. EtOH 206. Labs otherwise unremarkable. Admitted to hospitalist - Diagnoses Provider Diagnoses: Alcohol abuse Discharge - Sign-Out/Discharge Documenting (check all that apply): Patient Departure - Discharge Plan Condition: Stable Disposition: ADMITTED TO [facility] - Billing Disposition and Condition Condition: STABLE Disposition: Admitted to [facility]
[2018-11-04] MEDS: Diazepam TAB(*) 5 MG PO SCH ×2 (06:29→13:13)
[2018-11-04] MEDS: Thiamine TAB* 100 MG TAB PO SCH (08:48)
[2018-11-04] MEDS: Multivitamins/Minerals TAB PO SCH (08:48)
[2018-11-04] MEDS: Pantoprazole TAB * 40 MG TAB PO SCH (08:48)
[2018-11-04] MEDS: Heparin VIAL(*) 5000 UNITS/ML VIAL (FIVE THOUSAND) SUBCUT SCH ×2 (08:49→21:05)
[2018-11-04] MEDS: Folic Acid TAB* 1 MG PO SCH (08:49)
[2018-11-04] MEDS ORDERED: Pneumococcal *Vac Polyvalent 0.5 ML VIAL IM ONE (09:00)
[2018-11-04] MEDS: Mouth Piece, Nicotine* 1 EACH CARTRIDGE INH PRN (13:14)
[2018-11-04] MEDS: Nicotine Inhaler* 10 MG AMP INH PRN ×2 (13:14→20:31)
--- NOTE | 2018-11-04 17:48 | PN ---
Subjective Date of Service: 11/04/18 Interval History: patient report nausea today, reports sweating overnight. denies tremors. denies chest pain or shortness of breath. Denies abd pain n/v/d. Family History: Unchanged from Admission Social History: Unchanged from Admission Past Medical History: Unchanged from Admission Objective Active Medications: Acetaminophen (Tylenol Tab*) 650 mg PO Q4H PRN PRN Reason: PAIN Device (Nicotine Mouth Piece*) 1 each INH Q2H PRN PRN Reason: CRAVINGS Last Admin: 11/04/18 13:14 Dose: 1 each Diazepam (Valium Tab(*)) 5 mg PO Q12H [facility] Stop: 11/06/18 02:31 Folic Acid (Folvite Tab*) 1 mg PO DAILY [facility] Last Admin: 11/04/18 08:49 Dose: 1 mg Heparin Sodium (Porcine) (Heparin Vial(*)) 5,000 units SUBCUT Q12HR [facility] Last Admin: 11/04/18 08:49 Dose: 5,000 units Sodium Chloride (Ns 0.9% 1000 Ml*) 1,000 mls @ 100 mls/hr IV PER RATE [facility] Last Admin: 11/04/18 08:58 Dose: 100 mls/hr Lorazepam (Ativan Tab(*)) 0 mg PO Q2H PRN; Protocol PRN Reason: alcohol withdrawal Last Admin: 11/04/18 10:25 Dose: 1 mg Multivitamins/Minerals (Theragran/Minerals Tab*) 1 tab PO DAILY [facility] Last Admin: 11/04/18 08:48 Dose: 1 tab Nicotine (Nicotine Inhaler*) 10 mg INH Q2H PRN PRN Reason: CRAVING Last Admin: 11/04/18 13:14 Dose: 10 mg Ondansetron HCl (Zofran Inj*) 4 mg IV Q6H PRN PRN Reason: NAUSEA Pantoprazole Sodium (Protonix Tab (Nf)) 40 mg PO DAILY [facility] Last Admin: 11/04/18 08:48 Dose: 40 mg Thiamine HCl (Vitamin B-1 Tab*) 100 mg PO DAILY [facility] Last Admin: 11/04/18 08:48 Dose: 100 mg Vital Signs - 8 hr 11/04/18 11/04/18 11/04/18 09:54 10:25 11:59 Temperature 98.2 F 98.6 F Pulse Rate 89 84 Respiratory 18 20 18 Rate Blood Pressure 131/79 158/86 (mmHg) O2 Sat by Pulse 100 100 Oximetry 11/04/18 11/04/18 11/04/18 13:13 14:05 15:52 Temperature 99.3 F 98.6 F Pulse Rate 95 94 Respiratory 20 19 18 Rate Blood Pressure 143/91 133/79 (mmHg) O2 Sat by Pulse 97 100 Oximetry Oxygen Devices in Use Now: None Appearance: alert and oriented ,middle ages male , no acute distress Eyes: No Scleral Icterus Ears/Nose/Mouth/Throat: NL Teeth, Lips, Gums, Mucous Membranes Moist Neck: NL Appearance and Movements; NL JVP, Trachea Midline Respiratory: Symmetrical Chest Expansion and Respiratory Effort, Clear to Auscultation Cardiovascular: NL Sounds; No Murmurs; No JVD, No Edema Abdominal: NL Sounds; No Tenderness; No Distention Extremities: No Edema, No Clubbing, Cyanosis Skin: No Rash or Ulcers, No Nodules or Sclerosis Neurological: Alert and Oriented x 3 Nutrition: Taking PO's Result Diagrams: 11/03/18 15:39 11/03/18 15:39 Additional Lab and Data: Lab Results 11/03/18 11/03/18 11/03/18 Range/Units 15:39 15:39 15:39 WBC 10.0 (3.5-10.8) 10^3/ul RBC 4.03 (4.00-5.40) 10^6/ul Hgb 12.8 L (14.0-18.0) g/dl Hct 38 L (42-52) % MCV 94 (80-94) fL MCH 32 H (27-31) pg MCHC 34 (31-36) g/dl RDW 16 H (10.5-15) % Plt Count 112 L (150-450) 10^3/ul MPV 7.5 (7.4-10.4) fL Neut % (Auto) 52.4 % Lymph % (Auto) 30.7 % [place] % (Auto) 15.6 % Eos % (Auto) 0.9 % Baso % (Auto) 0.4 % Absolute Neuts (auto) 5.2 (1.5-7.7) 10^3/ul Absolute Lymphs (auto) 3.1 (1.0-4.8) 10^3/ul Absolute Monos (auto) 1.6 H (0-0.8) 10^3/ul Absolute Eos (auto) 0.1 (0-0.6) 10^3/ul Absolute Basos (auto) 0 (0-0.2) 10^3/ul Absolute Nucleated RBC 0 10^3/ul Nucleated RBC % 0.1 INR (Anticoag Therapy) (0.77-1.02) APTT (26.0-36.3) seconds Sodium 139 (135-145) mmol/L Potassium 3.9 (3.5-5.0) mmol/L Chloride 105 (101-111) mmol/L Carbon Dioxide 29 (22-32) mmol/L Anion Gap 5 (2-11) mmol/L BUN 6 (6-24) mg/dL Creatinine 0.69 (0.67-1.17) mg/dL Est GFR ( Amer) 150.7 (>60) Est GFR (Non-Af Amer) 124.6 (>60) BUN/Creatinine Ratio 8.7 (8-20) Glucose 110 H (70-100) mg/dL Hemoglobin A1c 5.1 (4.0-5.6) % Calcium 9.2 (8.6-10.3) mg/dL Magnesium 2.2 (1.9-2.7) mg/dL Total Bilirubin 0.90 (0.2-1.0) mg/dL AST 61 H (13-39) U/L ALT 28 (7-52) U/L Alkaline Phosphatase 95 (34-104) U/L Ammonia (16-53) mcmol/L Total Protein 7.8 (6.4-8.9) g/dL Albumin 3.8 (3.2-5.2) g/dL Globulin 4.0 (2-4) g/dL Albumin/Globulin Ratio 1.0 (1-3) TSH 4.02 (0.34-5.60) mcIU/mL Urine Opiates Screen (None Detect) Ur Barbiturates Screen (None Detect) Ur Phencyclidine Scrn (None Detect) Ur Amphetamines Screen (None Detect) U Benzodiazepines Scrn (None Detect) Urine Cocaine Screen (None Detect) U Cannabinoids Screen (None Detect) Serum Alcohol 206 H (<10) mg/dL 01/15/19 01/15/19 01/15/19 Range/Units 15:40 15:40 16:26 WBC (3.5-10.8) 10^3/ul RBC (4.00-5.40) 10^6/ul Hgb (14.0-18.0) g/dl Hct (42-52) % MCV (80-94) fL MCH (27-31) pg MCHC (31-36) g/dl RDW (10.5-15) % Plt Count (150-450) 10^3/ul MPV (7.4-10.4) fL Neut % (Auto) % Lymph % (Auto) % [place] % (Auto) % Eos % (Auto) % Baso % (Auto) % Absolute Neuts (auto) (1.5-7.7) 10^3/ul Absolute Lymphs (auto) (1.0-4.8) 10^3/ul Absolute Monos (auto) (0-0.8) 10^3/ul Absolute Eos (auto) (0-0.6) 10^3/ul Absolute Basos (auto) (0-0.2) 10^3/ul Absolute Nucleated RBC 10^3/ul Nucleated RBC % INR (Anticoag Therapy) 1.04 H (0.77-1.02) APTT 33.1 (26.0-36.3) seconds Sodium (135-145) mmol/L Potassium (3.5-5.0) mmol/L Chloride (101-111) mmol/L Carbon Dioxide (22-32) mmol/L Anion Gap (2-11) mmol/L BUN (6-24) mg/dL Creatinine (0.67-1.17) mg/dL Est GFR ( Amer) (>60) Est GFR (Non-Af Amer) (>60) BUN/Creatinine Ratio (8-20) Glucose (70-100) mg/dL Hemoglobin A1c (4.0-5.6) % Calcium (8.6-10.3) mg/dL Magnesium (1.9-2.7) mg/dL Total Bilirubin (0.2-1.0) mg/dL AST (13-39) U/L ALT (7-52) U/L Alkaline Phosphatase (34-104) U/L Ammonia 96 H (16-53) mcmol/L Total Protein (6.4-8.9) g/dL Albumin (3.2-5.2) g/dL Globulin (2-4) g/dL Albumin/Globulin Ratio (1-3) TSH (0.34-5.60) mcIU/mL Urine Opiates Screen None detected (None Detect) Ur Barbiturates Screen None detected (None Detect) Ur Phencyclidine Scrn None detected (None Detect) Ur Amphetamines Screen None detected (None Detect) U Benzodiazepines Scrn None detected (None Detect) Urine Cocaine Screen Presumptive positive A (None Detect) U Cannabinoids Screen Presumptive positive A (None Detect) Serum Alcohol (<10) mg/dL Assess/Plan/Problems-Billing Assessment: Mr. Corral is a 43 y.o male with a pmhx significant for diet controlled DM, anxiety , htn and hep-c who presented to the emergency room for detox. Patient reports that he has never had sz when detoxing from alcohol. - Patient Problems (1) Chronic alcoholism Current Visit: No Status: Acute Code(s): F10.20 - ALCOHOL DEPENDENCE, UNCOMPLICATED SNOMED Code(s): 4047633 Comment: would like to quit - looking for outpatient rehab and will continue at [facility] protocol (2) Anxiety Current Visit: Yes Status: Acute Code(s): F41.9 - ANXIETY DISORDER, UNSPECIFIED SNOMED Code(s): 71968906 Comment: supportive care (3) HTN (hypertension) Current Visit: Yes Status: Acute Code(s): I10 - ESSENTIAL (PRIMARY) HYPERTENSION SNOMED Code(s): 60505180 Comment: stable will continue to monitor (4) Hepatitis C Current Visit: No Status: Acute Comment: benefit from therapy - patient reports starting medications in 1 month (5) DVT prophylaxis Current Visit: No Status: Acute Code(s): ZRS8444 - SNOMED Code(s): 776242234 Comment: heparin Status and Disposition: discharge home when medically stable
[2018-11-04] MEDS ORDERED: Ibuprofen TAB* 600 MG PO PRN (20:25)
[2018-11-04] MEDS: traMADol TAB* 50 MG PO PRN (20:59)
[2018-11-05] MEDS: LORazepam TAB(*) 0.5 MG PO PRN ×3 (00:42→22:05)
[2018-11-05] MEDS: Nicotine Inhaler* 10 MG AMP INH PRN ×2 (00:43→16:58)
[2018-11-05] MEDS: Diazepam TAB(*) 5 MG PO SCH ×2 (02:30→14:57)
[2018-11-05] MEDS: Folic Acid TAB* 1 MG PO SCH (08:46)
[2018-11-05] MEDS: Multivitamins/Minerals TAB PO SCH (08:46)
[2018-11-05] MEDS: Thiamine TAB* 100 MG TAB PO SCH (08:47)
[2018-11-05] MEDS: Pantoprazole TAB * 40 MG TAB PO SCH (08:47)
[2018-11-05] MEDS: Heparin VIAL(*) 5000 UNITS/ML VIAL (FIVE THOUSAND) SUBCUT SCH ×2 (08:47→20:12)
--- NOTE | 2018-11-05 15:12 | PN ---
Subjective Date of Service: 11/05/18 Interval History: Patient reports feeling very anxious, states that episodes of sweating overnight. Patient is scoring on WAM between 1 and 8. Reports intermittent nausea. Denies chest pain or shortness of breath. denies vomiting or diarrhea. Denies visual or auditory hallucinations Family History: Unchanged from Admission Social History: Unchanged from Admission Past Medical History: Unchanged from Admission Objective Active Medications: Acetaminophen (Tylenol Tab*) 650 mg PO Q4H PRN PRN Reason: PAIN Last Admin: 11/04/18 17:46 Dose: 650 mg Device (Nicotine Mouth Piece*) 1 each INH Q2H PRN PRN Reason: CRAVINGS Last Admin: 11/04/18 13:14 Dose: 1 each Diazepam (Valium Tab(*)) 5 mg PO Q12H [facility] Stop: 11/06/18 02:31 Last Admin: 11/05/18 14:57 Dose: 5 mg Folic Acid (Folvite Tab*) 1 mg PO DAILY [facility] Last Admin: 11/05/18 08:46 Dose: 1 mg Heparin Sodium (Porcine) (Heparin Vial(*)) 5,000 units SUBCUT Q12HR [facility] Last Admin: 11/05/18 08:47 Dose: 5,000 units Ibuprofen (Motrin Tab*) 600 mg PO Q8H PRN PRN Reason: PAIN Lorazepam (Ativan Tab(*)) 0 mg PO Q2H PRN; Protocol PRN Reason: alcohol withdrawal Last Admin: 11/05/18 00:42 Dose: 1 mg Multivitamins/Minerals (Theragran/Minerals Tab*) 1 tab PO DAILY [facility] Last Admin: 11/05/18 08:46 Dose: 1 tab Nicotine (Nicotine Inhaler*) 10 mg INH Q2H PRN PRN Reason: CRAVING Last Admin: 11/05/18 00:43 Dose: 10 mg Ondansetron HCl (Zofran Inj*) 4 mg IV Q6H PRN PRN Reason: NAUSEA Pantoprazole Sodium (Protonix Tab (Nf)) 40 mg PO DAILY [facility] Last Admin: 11/05/18 08:47 Dose: 40 mg Thiamine HCl (Vitamin B-1 Tab*) 100 mg PO DAILY [facility] Last Admin: 11/05/18 08:47 Dose: 100 mg Tramadol HCl (Ultram*) 50 mg PO Q6H PRN PRN Reason: PAIN Last Admin: 11/04/18 20:59 Dose: 50 mg Vital Signs - 8 hr 11/05/18 11/05/18 11/05/18 08:00 08:06 10:17 Temperature 98.2 F 98.0 F Pulse Rate 82 95 Respiratory 20 20 18 Rate Blood Pressure 147/91 146/99 (mmHg) O2 Sat by Pulse 99 100 Oximetry 11/05/18 14:57 Temperature Pulse Rate Respiratory 20 Rate Blood Pressure (mmHg) O2 Sat by Pulse Oximetry Oxygen Devices in Use Now: None Appearance: appears calm and comfortable resting in bed. no acute distress Eyes: No Scleral Icterus Ears/Nose/Mouth/Throat: Clear Oropharnyx, Mucous Membranes Moist Neck: NL Appearance and Movements; NL JVP, Trachea Midline Respiratory: Symmetrical Chest Expansion and Respiratory Effort, Clear to Auscultation Cardiovascular: NL Sounds; No Murmurs; No JVD, No Edema Abdominal: NL Sounds; No Tenderness; No Distention Extremities: No Edema, No Clubbing, Cyanosis Skin: No Rash or Ulcers Neurological: Alert and Oriented x 3 Nutrition: Taking PO's Result Diagrams: 11/03/18 15:39 11/03/18 15:39 Additional Lab and Data: Lab Results 11/03/18 11/03/18 11/03/18 Range/Units 15:39 15:39 15:39 WBC 10.0 (3.5-10.8) 10^3/ul RBC 4.03 (4.00-5.40) 10^6/ul Hgb 12.8 L (14.0-18.0) g/dl Hct 38 L (42-52) % MCV 94 (80-94) fL MCH 32 H (27-31) pg MCHC 34 (31-36) g/dl RDW 16 H (10.5-15) % Plt Count 112 L (150-450) 10^3/ul MPV 7.5 (7.4-10.4) fL Neut % (Auto) 52.4 % Lymph % (Auto) 30.7 % [place] % (Auto) 15.6 % Eos % (Auto) 0.9 % Baso % (Auto) 0.4 % Absolute Neuts (auto) 5.2 (1.5-7.7) 10^3/ul Absolute Lymphs (auto) 3.1 (1.0-4.8) 10^3/ul Absolute Monos (auto) 1.6 H (0-0.8) 10^3/ul Absolute Eos (auto) 0.1 (0-0.6) 10^3/ul Absolute Basos (auto) 0 (0-0.2) 10^3/ul Absolute Nucleated RBC 0 10^3/ul Nucleated RBC % 0.1 INR (Anticoag Therapy) (0.77-1.02) APTT (26.0-36.3) seconds Sodium 139 (135-145) mmol/L Potassium 3.9 (3.5-5.0) mmol/L Chloride 105 (101-111) mmol/L Carbon Dioxide 29 (22-32) mmol/L Anion Gap 5 (2-11) mmol/L BUN 6 (6-24) mg/dL Creatinine 0.69 (0.67-1.17) mg/dL Est GFR ( Amer) 150.7 (>60) Est GFR (Non-Af Amer) 124.6 (>60) BUN/Creatinine Ratio 8.7 (8-20) Glucose 110 H (70-100) mg/dL Hemoglobin A1c 5.1 (4.0-5.6) % Calcium 9.2 (8.6-10.3) mg/dL Magnesium 2.2 (1.9-2.7) mg/dL Total Bilirubin 0.90 (0.2-1.0) mg/dL AST 61 H (13-39) U/L ALT 28 (7-52) U/L Alkaline Phosphatase 95 (34-104) U/L Ammonia (16-53) mcmol/L Total Protein 7.8 (6.4-8.9) g/dL Albumin 3.8 (3.2-5.2) g/dL Globulin 4.0 (2-4) g/dL Albumin/Globulin Ratio 1.0 (1-3) TSH 4.02 (0.34-5.60) mcIU/mL Urine Opiates Screen (None Detect) Ur Barbiturates Screen (None Detect) Ur Phencyclidine Scrn (None Detect) Ur Amphetamines Screen (None Detect) U Benzodiazepines Scrn (None Detect) Urine Cocaine Screen (None Detect) U Cannabinoids Screen (None Detect) Serum Alcohol 206 H (<10) mg/dL 11/03/18 11/03/18 11/03/18 Range/Units 15:40 15:40 16:26 WBC (3.5-10.8) 10^3/ul RBC (4.00-5.40) 10^6/ul Hgb (14.0-18.0) g/dl Hct (42-52) % MCV (80-94) fL MCH (27-31) pg MCHC (31-36) g/dl RDW (10.5-15) % Plt Count (150-450) 10^3/ul MPV (7.4-10.4) fL Neut % (Auto) % Lymph % (Auto) % [place] % (Auto) % Eos % (Auto) % Baso % (Auto) % Absolute Neuts (auto) (1.5-7.7) 10^3/ul Absolute Lymphs (auto) (1.0-4.8) 10^3/ul Absolute Monos (auto) (0-0.8) 10^3/ul Absolute Eos (auto) (0-0.6) 10^3/ul Absolute Basos (auto) (0-0.2) 10^3/ul Absolute Nucleated RBC 10^3/ul Nucleated RBC % INR (Anticoag Therapy) 1.04 H (0.77-1.02) APTT 33.1 (26.0-36.3) seconds Sodium (135-145) mmol/L Potassium (3.5-5.0) mmol/L Chloride (101-111) mmol/L Carbon Dioxide (22-32) mmol/L Anion Gap (2-11) mmol/L BUN (6-24) mg/dL Creatinine (0.67-1.17) mg/dL Est GFR ( Amer) (>60) Est GFR (Non-Af Amer) (>60) BUN/Creatinine Ratio (8-20) Glucose (70-100) mg/dL Hemoglobin A1c (4.0-5.6) % Calcium (8.6-10.3) mg/dL Magnesium (1.9-2.7) mg/dL Total Bilirubin (0.2-1.0) mg/dL AST (13-39) U/L ALT (7-52) U/L Alkaline Phosphatase (34-104) U/L Ammonia 96 H (16-53) mcmol/L Total Protein (6.4-8.9) g/dL Albumin (3.2-5.2) g/dL Globulin (2-4) g/dL Albumin/Globulin Ratio (1-3) TSH (0.34-5.60) mcIU/mL Urine Opiates Screen None detected (None Detect) Ur Barbiturates Screen None detected (None Detect) Ur Phencyclidine Scrn None detected (None Detect) Ur Amphetamines Screen None detected (None Detect) U Benzodiazepines Scrn None detected (None Detect) Urine Cocaine Screen Presumptive positive A (None Detect) U Cannabinoids Screen Presumptive positive A (None Detect) Serum Alcohol (<10) mg/dL Assess/Plan/Problems-Billing Assessment: Mr. Corral is a 43 y.o male with a pmhx significant for diet controlled DM, anxiety , htn and hep-c who presented to the emergency room for detox. Patient reports that he has never had sz when detoxing from alcohol. - Patient Problems (1) Chronic alcoholism Current Visit: No Status: Acute Code(s): F10.20 - ALCOHOL DEPENDENCE, UNCOMPLICATED SNOMED Code(s): 3382359 Comment: would like to quit - looking for outpatient rehab and will continue at [facility] - continue [facility] protocol patient scoring between 1-8 today - continues to have episodes of nasuea and sweating, and feeling anxious (2) Anxiety Current Visit: Yes Status: Acute Code(s): F41.9 - ANXIETY DISORDER, UNSPECIFIED SNOMED Code(s): 57892913 Comment: supportive care (3) HTN (hypertension) Current Visit: Yes Status: Acute Code(s): I10 - ESSENTIAL (PRIMARY) HYPERTENSION SNOMED Code(s): 18589123 Comment: stable will continue to monitor (4) Hepatitis C Current Visit: No Status: Acute Comment: benefit from therapy - patient reports starting medications in 1 month (5) DVT prophylaxis Current Visit: No Status: Acute Code(s): MQO6499 - SNOMED Code(s): 058043255 Comment: heparin Status and Disposition: discharge home when medically stable
[2018-11-05] MEDS ORDERED: Gabapentin CAP(*) 300 MG PO PRN (19:49)
[2018-11-06] MEDS: LORazepam TAB(*) 1 MG PO PRN ×4 (02:47→22:14)
[2018-11-06] MEDS: Diazepam TAB(*) 5 MG PO SCH (02:49)
[2018-11-06 08:20] LABS: Hematocrit 38 % (42-52); Hemoglobin 12.9 g/dl (14.0-18.0); Mean Corpuscular HGB Conc 34 g/dl (31-36); Mean Corpuscular Hemoglobin 32 pg (27-31); Mean Corpuscular Volume 95 fL (80-94); Mean Platelet Volume 7.8 fL (7.4-10.4); Platelet Count 109 10^3/ul (150-450); Red Blood Count 4.03 10^6/ul (4.00-5.40); Red Cell Distribution Width 16 % (10.5-15); White Blood Count 8.3 10^3/ul (3.5-10.8)
[2018-11-06] MEDS: Thiamine TAB* 100 MG TAB PO SCH (08:45)
[2018-11-06] MEDS: Multivitamins/Minerals TAB PO SCH (08:46)
[2018-11-06] MEDS: Pantoprazole TAB * 40 MG TAB PO SCH (08:46)
[2018-11-06] MEDS: Heparin VIAL(*) 5000 UNITS/ML VIAL (FIVE THOUSAND) SUBCUT SCH ×2 (08:49→22:14)
[2018-11-06] MEDS: traMADol TAB* 50 MG PO PRN (09:40)
[2018-11-06] MEDS: Folic Acid TAB* 1 MG PO SCH (09:40)
[2018-11-06] MEDS: Mouth Piece, Nicotine* 1 EACH CARTRIDGE INH PRN (19:44)
[2018-11-06] MEDS: Nicotine Inhaler* 10 MG AMP INH PRN (19:44)
--- NOTE | 2018-11-06 21:24 | PN ---
Subjective Date of Service: 11/06/18 Interval History: Patient report that he continues to have intermittent nausea. reports episodes of anxiousness. Denies chest pain or shortness of breath . denies abd v/d. does report tremors and visual hallucinations. Family History: Unchanged from Admission Social History: Unchanged from Admission Past Medical History: Unchanged from Admission Objective Active Medications: Acetaminophen (Tylenol Tab*) 650 mg PO Q4H PRN PRN Reason: PAIN Last Admin: 11/04/18 17:46 Dose: 650 mg Device (Nicotine Mouth Piece*) 1 each INH Q2H PRN PRN Reason: CRAVINGS Last Admin: 11/06/18 19:44 Dose: 1 each Folic Acid (Folvite Tab*) 1 mg PO DAILY [facility] Last Admin: 11/06/18 09:40 Dose: 1 mg Gabapentin (Neurontin Cap(*)) 300 mg PO BID PRN PRN Reason: PAIN Last Admin: 11/05/18 20:15 Dose: 300 mg Heparin Sodium (Porcine) (Heparin Vial(*)) 5,000 units SUBCUT Q12HR [facility] Last Admin: 11/06/18 08:49 Dose: 5,000 units Ibuprofen (Motrin Tab*) 600 mg PO Q8H PRN PRN Reason: PAIN Last Admin: 11/05/18 20:14 Dose: 600 mg Lorazepam (Ativan Tab(*)) 0 mg PO Q2H PRN; Protocol PRN Reason: alcohol withdrawal Last Admin: 11/06/18 18:11 Dose: 1 mg Multivitamins/Minerals (Theragran/Minerals Tab*) 1 tab PO DAILY [facility] Last Admin: 11/06/18 08:46 Dose: 1 tab Nicotine (Nicotine Inhaler*) 10 mg INH Q2H PRN PRN Reason: CRAVING Last Admin: 11/06/18 19:44 Dose: 10 mg Ondansetron HCl (Zofran Inj*) 4 mg IV Q6H PRN PRN Reason: NAUSEA Pantoprazole Sodium (Protonix Tab (Nf)) 40 mg PO DAILY [facility] Last Admin: 11/06/18 08:46 Dose: 40 mg Thiamine HCl (Vitamin B-1 Tab*) 100 mg PO DAILY [facility] Last Admin: 11/06/18 08:45 Dose: 100 mg Tramadol HCl (Ultram*) 50 mg PO Q6H PRN PRN Reason: PAIN Last Admin: 11/06/18 09:40 Dose: 50 mg Vital Signs - 8 hr 11/06/18 11/06/18 11/06/18 13:56 16:07 18:11 Temperature 98.5 F Pulse Rate 90 93 Respiratory 24 20 Rate Blood Pressure 136/86 144/86 (mmHg) O2 Sat by Pulse 100 99 Oximetry 11/06/18 20:00 Temperature 98.5 F Pulse Rate 103 Respiratory 22 Rate Blood Pressure 156/107 (mmHg) O2 Sat by Pulse 100 Oximetry Oxygen Devices in Use Now: None Appearance: alert, resting in bed, no acute distress Eyes: No Scleral Icterus Ears/Nose/Mouth/Throat: Clear Oropharnyx, Mucous Membranes Moist Neck: NL Appearance and Movements; NL JVP Respiratory: Symmetrical Chest Expansion and Respiratory Effort, Clear to Auscultation Cardiovascular: NL Sounds; No Murmurs; No JVD, No Edema Abdominal: NL Sounds; No Tenderness; No Distention Extremities: No Edema, No Clubbing, Cyanosis Skin: No Rash or Ulcers Neurological: Alert and Oriented x 3 Nutrition: Taking PO's Result Diagrams: 11/06/18 07:57 11/03/18 15:39 Additional Lab and Data: Lab Results 11/03/18 11/03/18 11/03/18 Range/Units 15:39 15:39 15:39 WBC 10.0 (3.5-10.8) 10^3/ul RBC 4.03 (4.00-5.40) 10^6/ul Hgb 12.8 L (14.0-18.0) g/dl Hct 38 L (42-52) % MCV 94 (80-94) fL MCH 32 H (27-31) pg MCHC 34 (31-36) g/dl RDW 16 H (10.5-15) % Plt Count 112 L (150-450) 10^3/ul MPV 7.5 (7.4-10.4) fL Neut % (Auto) 52.4 % Lymph % (Auto) 30.7 % [place] % (Auto) 15.6 % Eos % (Auto) 0.9 % Baso % (Auto) 0.4 % Absolute Neuts (auto) 5.2 (1.5-7.7) 10^3/ul Absolute Lymphs (auto) 3.1 (1.0-4.8) 10^3/ul Absolute Monos (auto) 1.6 H (0-0.8) 10^3/ul Absolute Eos (auto) 0.1 (0-0.6) 10^3/ul Absolute Basos (auto) 0 (0-0.2) 10^3/ul Absolute Nucleated RBC 0 10^3/ul Nucleated RBC % 0.1 INR (Anticoag Therapy) (0.77-1.02) APTT (26.0-36.3) seconds Sodium 139 (135-145) mmol/L Potassium 3.9 (3.5-5.0) mmol/L Chloride 105 (101-111) mmol/L Carbon Dioxide 29 (22-32) mmol/L Anion Gap 5 (2-11) mmol/L BUN 6 (6-24) mg/dL Creatinine 0.69 (0.67-1.17) mg/dL Est GFR ( Amer) 150.7 (>60) Est GFR (Non-Af Amer) 124.6 (>60) BUN/Creatinine Ratio 8.7 (8-20) Glucose 110 H (70-100) mg/dL Hemoglobin A1c 5.1 (4.0-5.6) % Calcium 9.2 (8.6-10.3) mg/dL Magnesium 2.2 (1.9-2.7) mg/dL Total Bilirubin 0.90 (0.2-1.0) mg/dL AST 61 H (13-39) U/L ALT 28 (7-52) U/L Alkaline Phosphatase 95 (34-104) U/L Ammonia (16-53) mcmol/L Total Protein 7.8 (6.4-8.9) g/dL Albumin 3.8 (3.2-5.2) g/dL Globulin 4.0 (2-4) g/dL Albumin/Globulin Ratio 1.0 (1-3) TSH 4.02 (0.34-5.60) mcIU/mL Urine Opiates Screen (None Detect) Ur Barbiturates Screen (None Detect) Ur Phencyclidine Scrn (None Detect) Ur Amphetamines Screen (None Detect) U Benzodiazepines Scrn (None Detect) Urine Cocaine Screen (None Detect) U Cannabinoids Screen (None Detect) Serum Alcohol 206 H (<10) mg/dL 11/03/18 11/03/18 11/03/18 Range/Units 15:40 15:40 16:26 WBC (3.5-10.8) 10^3/ul RBC (4.00-5.40) 10^6/ul Hgb (14.0-18.0) g/dl Hct (42-52) % MCV (80-94) fL MCH (27-31) pg MCHC (31-36) g/dl RDW (10.5-15) % Plt Count (150-450) 10^3/ul MPV (7.4-10.4) fL Neut % (Auto) % Lymph % (Auto) % [place] % (Auto) % Eos % (Auto) % Baso % (Auto) % Absolute Neuts (auto) (1.5-7.7) 10^3/ul Absolute Lymphs (auto) (1.0-4.8) 10^3/ul Absolute Monos (auto) (0-0.8) 10^3/ul Absolute Eos (auto) (0-0.6) 10^3/ul Absolute Basos (auto) (0-0.2) 10^3/ul Absolute Nucleated RBC 10^3/ul Nucleated RBC % INR (Anticoag Therapy) 1.04 H (0.77-1.02) APTT 33.1 (26.0-36.3) seconds Sodium (135-145) mmol/L Potassium (3.5-5.0) mmol/L Chloride (101-111) mmol/L Carbon Dioxide (22-32) mmol/L Anion Gap (2-11) mmol/L BUN (6-24) mg/dL Creatinine (0.67-1.17) mg/dL Est GFR ( Amer) (>60) Est GFR (Non-Af Amer) (>60) BUN/Creatinine Ratio (8-20) Glucose (70-100) mg/dL Hemoglobin A1c (4.0-5.6) % Calcium (8.6-10.3) mg/dL Magnesium (1.9-2.7) mg/dL Total Bilirubin (0.2-1.0) mg/dL AST (13-39) U/L ALT (7-52) U/L Alkaline Phosphatase (34-104) U/L Ammonia 96 H (16-53) mcmol/L Total Protein (6.4-8.9) g/dL Albumin (3.2-5.2) g/dL Globulin (2-4) g/dL Albumin/Globulin Ratio (1-3) TSH (0.34-5.60) mcIU/mL Urine Opiates Screen None detected (None Detect) Ur Barbiturates Screen None detected (None Detect) Ur Phencyclidine Scrn None detected (None Detect) Ur Amphetamines Screen None detected (None Detect) U Benzodiazepines Scrn None detected (None Detect) Urine Cocaine Screen Presumptive positive A (None Detect) U Cannabinoids Screen Presumptive positive A (None Detect) Serum Alcohol (<10) mg/dL Assess/Plan/Problems-Billing Assessment: Mr. Corral is a 43 y.o male with a pmhx significant for diet controlled DM, anxiety , htn and hep-c who presented to the emergency room for detox. Patient reports that he has never had sz when detoxing from alcohol. - Patient Problems (1) Chronic alcoholism Current Visit: No Status: Acute Code(s): F10.20 - ALCOHOL DEPENDENCE, UNCOMPLICATED SNOMED Code(s): 0659013 Comment: would like to quit - looking for outpatient rehab and will continue at [facility] - continue [facility] protocol patient scoring between 2-9 today - continues to have episodes of nasuea and sweating, and feeling anxious, and fine hand tremors (2) Anxiety Current Visit: Yes Status: Acute Code(s): F41.9 - ANXIETY DISORDER, UNSPECIFIED SNOMED Code(s): 56062755 Comment: supportive care (3) HTN (hypertension) Current Visit: Yes Status: Acute Code(s): I10 - ESSENTIAL (PRIMARY) HYPERTENSION SNOMED Code(s): 09441981 Comment: stable will continue to monitor (4) Hepatitis C Current Visit: No Status: Acute Comment: benefit from therapy - patient reports starting medications in 1 month (5) DVT prophylaxis Current Visit: No Status: Acute Code(s): UTG2326 - SNOMED Code(s): 613523213 Comment: heparin Status and Disposition: discharge home when medically stable
[2018-11-07] MEDS: LORazepam TAB(*) 1 MG PO PRN ×2 (04:08→06:27)
[2018-11-07 07:10] LABS: Hematocrit 36 % (42-52); Hemoglobin 12.5 g/dl (14.0-18.0); Mean Corpuscular HGB Conc 35 g/dl (31-36); Mean Corpuscular Hemoglobin 33 pg (27-31); Mean Corpuscular Volume 94 fL (80-94); Mean Platelet Volume 7.5 fL (7.4-10.4); Platelet Count 111 10^3/ul (150-450); Red Blood Count 3.84 10^6/ul (4.00-5.40); Red Cell Distribution Width 16 % (10.5-15); White Blood Count 9.5 10^3/ul (3.5-10.8)
[2018-11-07 07:37] LABS: BUN/Creatinine Ratio 17.7 (8-20); Calcium 9.1 mg/dL (8.6-10.3); EGFR African American 128.9 (>60); EGFR Non-African American 106.6 (>60); Potassium 3.9 mmol/L (3.5-5.0)
[2018-11-07] MEDS: Heparin VIAL(*) 5000 UNITS/ML VIAL (FIVE THOUSAND) SUBCUT SCH (10:33)
[2018-11-07] MEDS: Multivitamins/Minerals TAB PO SCH (10:34)
[2018-11-07] MEDS: Folic Acid TAB* 1 MG PO SCH (10:34)
[2018-11-07] MEDS: Thiamine TAB* 100 MG TAB PO SCH (10:34)
[2018-11-07] MEDS: Pantoprazole TAB * 40 MG TAB PO SCH (10:34)
[2018-11-07 12:08] VITALS: BP 140/75
--- NOTE | 2018-11-07 21:54 | DS ---
DISCHARGE SUMMARY: DATE OF ADMISSION: 11/03/18 DATE OF DISCHARGE: 11/07/18 PRIMARY DIAGNOSES: 1. Alcohol withdrawal. 2. Anxiety. SECONDARY DIAGNOSES: 1. Diet-controlled diabetes. 2. Hypertension. 3. Hepatitis C, recently started on treatment. HOSPITAL COURSE: A 43-year-old male with longstanding history of alcohol abuse, came in to the [facility] for detox and alcohol withdrawal, history of longstanding alcohol abuse. [facility] and physical for full details. The patient has had DTs in the past, but no seizures. Th e patient was started on Valium and then on the WAM protocol with Ativan as needed. Thiamine, folic acid, and multivitamin were continued. The patient also has a history of hepatitis C and per the pat ient, was started on treatment a month ago. The patient today does not have any signs of withdrawal, has been doing well and requesting to go home. The patient assures that he would not start drinking . Vitals and labs noted to be stable at time of discharge. WBC 9.5, hemoglobin 12.5, hematocrit 36, platelets noted to be 111. Sodium 137, potassium 3.9, chloride 107, CO2 25, BUN 14, creatinine 0.7. PHYSICAL EXAMINATION: HEENT: NCAT. Heart: S1, S2 present, regular at the time of exam. Lungs: D ecreased breath sounds bilaterally. Abdomen: Soft. Extremities: No edema. Neuro: Alert and orien mira. Answers all questions appropriately. DISCHARGE MEDICATIONS: 1. Clonazepam, which is a home med for the patient, 1 mg p.o. t.i.d. 2. Clonidine, which is a home med for the patient, 0.1 mg p.o. q.p.m. 3. Also discharging on thiamine, multivitamin, and folic acid. DISCHARGE DISPOSITION: Stable. The patient to follow up with his primary care physician in a week and follow up with AA and the [facility] as outpatient. TIME SPENT: Total time spent on discharge is equal to 40 minutes. [id number]/[facility] #: [id number]
== END 2018-11-07 13:09 | disposition home or self-care (01) | DRG 775 ==
LOC: ED 13:55 → MED 20:19
PROVIDERS: ADMIT Hospitalist; ATTEND Internal Medicine
PROC: HZ2ZZZZ Detoxification Services for Substance Abuse Treatment (ICD-10-PCS; principal; 2018-11-03)
DX: F10.239 Alcohol dependence with withdrawal, unspecified (principal); G47.00 Insomnia, unspecified; K74.60 Unspecified cirrhosis of liver; J44.9 Chronic obstructive pulmonary disease, unspecified; E11.9 Type 2 diabetes mellitus without complications; E03.9 Hypothyroidism, unspecified; I10 Essential (primary) hypertension; E78.5 Hyperlipidemia, unspecified; G47.30 Sleep apnea, unspecified; F41.9 Anxiety disorder, unspecified; F43.10 Post-traumatic stress disorder, unspecified; F17.210 Nicotine dependence, cigarettes, uncomplicated; D64.9 Anemia, unspecified; D69.6 Thrombocytopenia, unspecified; Y90.7 Blood alcohol level of 200-239 mg/100 ml; F31.9 Bipolar disorder, unspecified; B19.20 Unspecified viral hepatitis C without hepatic coma; Z82.49 Family history of ischemic heart disease and other diseases of the circulatory system; Z83.3 Family history of diabetes mellitus; Z82.3 Family history of stroke; Z23 Encounter for immunization
CPT/HCPCS: 36415; 80048; 80053; 80307; 80320; 82140; 83036; 83735; 84443; 85025; 85027; 85610; 85730; 86703; 90732; 93005; 99284; A9270-GY; G0480; J1644; J2405; J3411

== ENCOUNTER 2019-06-06 19:12 | Emergency (ER) | payer OTHER ==
--- NOTE | 2019-06-06 19:43 | ED ---
Psychiatric Complaint - HPI Summary HPI Summary: The patient is a 44 y/o M presenting to [facility] as 2208 with chief complaint of alcohol intoxication of rum and vodka tonight. He reports SI without a plan. He also notes that hes been angry, which is why he has fresh self-inflicted lacerations to the left calf. His symptoms are currently rated 10/10 in severity. PMHx: DM, hypothyroidism, HLD, HTN, asthma, COPD, acute renal failure , anxiety, depression, panic disorder, inpatient treatment, bipolar disorder, suicide attempt, substance abuse, hepatitis C. Heavy every day cigarette smoker , daily EtOH, cocaine and marijuana use. - History Of Current Complaint Chief Complaint: EDMentalHealth Time Seen by Provider: 06/06/19 19:33 Hx Obtained From: Patient Onset/Duration: Lasting Hours, Still Present Timing: Hours Severity Initially: Moderate Severity Currently: Severe Character: Angry Aggravating Factor(s): Alcohol Use, Other - anger Alleviating Factor(s): Nothing Related History: Positive For: Prior Psychiatric Issues - anxiety, depression, panic disorder, bipolar disorders, suicide attempt Has Suicidal: Reports: Thoughts. Denies: With A Plan - Allergies/Home Medications Allergies/Adverse Reactions: Allergies Allergy/AdvReac Type Severity Reaction Status Date / Time No Known Allergies Allergy Verified 06/09/19 20:38 PMH/Surg Hx/FS Hx/Imm Hx Endocrine/Hematology History: Reports: Hx Diabetes, Hx Thyroid Disease - hypothyroidism Denies: Hx Anticoagulant Therapy, Hx Blood Disorders, Hx Blood Transfusions, Hx Bone Marrow Disease, Hx Systemic Lupus Erythematosus, Hx Sickle Cell Disease , Hx Anemia, Hx Unexplained Bleeding, Other Endocrine/Hematological Disorders Cardiovascular History: Reports: Hx Hypercholesterolemia, Hx Hypertension Denies: Hx Aneurysm, Hx Angina, Hx Angioplasty, Hx Auto Implanted Cardiovert Defib, Hx Cardiac Arrest, Hx Cardiomegaly, Hx Congenital Heart Disease, Hx Congestive Heart Failure, Hx Coronary Artery Disease, Hx Deep Vein Thrombosis, Hx Embolism, Hx Hypotension, Hx Pacemaker/ICD, Hx Peripheral Vascular Disease, Hx Rheumatic Fever, Hx Syncope, Hx Valvular Heart Disease, Other Cardiovascular Problems/Disorders Respiratory History: Reports: Hx Asthma, Hx Chronic Obstructive Pulmonary Disease (COPD) - getting there, Hx Sleep Apnea Denies: Hx Bronchopulmonary Dysplasia, Hx Chronic Bronchitis, Hx Cystic Fibrosis, Hx Lung Cancer, Hx Pleural Effusion, Hx Pneumonia, Hx Pulmonary Edema , Hx Pulmonary Embolism, Hx Seasonal Allergies, Other Respiratory Problems/ Disorders GI History: Denies: Hx Cirrhosis, Hx Crohn's Disease, Hx Diverticulosis, Hx Gall Bladder Disease, Hx Gastroesophageal Reflux Disease, Hx Gastrointestinal Bleed, Hx Hiatal Hernia, Hx Irritable Bowel, Hx Jaundice, Hx Obstructive Bowel, Hx Ileostomy, Hx Pyloric Stenosis, Hx Ulcer, Other GI Disorders History: Reports: Hx Acute Renal Failure, Other Problems/Disorders - Liver failure Denies: Hx Benign Prostatic Hyperplasia, Hx Chronic Renal Failure, Hx Dialysis, Hx Kidney Infection, Hx Kidney Stones, Hx Renal Disease Musculoskeletal History: Denies: Hx Arthritis, Hx Back Problems, Hx Bursitis, Hx Congenital Bone Abnormalities, Hx Fibromyalgia, Hx Gout, Hx Orthopedic Injury, Hx Osteoporosis, Hx Scoliosis, Hx Tendonitis, Other Musculoskeletal History Sensory History: Denies: Hx Cataracts, Hx Contacts or Glasses, Hx Eye Injury, Hx Eye Prosthesis, Hx Glaucoma, Hx Legally Blind, Hx Macular Degeneration, Hx Vision Problem, Hx Deafness, Hx Hearing Aid, Hx Hearing Problem, Other Sensory Impairments Opthamlomology History: Denies: Hx Cataracts, Hx Contacts or Glasses, Hx Eye Injury, Hx Eye Prosthesis, Hx Glaucoma, Hx Legally Blind, Hx Macular Degeneration, Hx Vision Problem, Other Sensory Impairments Neurological History: Denies: Hx Dementia, Hx Developmental Delay, Hx Headaches, Hx Migraine, Hx Nerve Disease, Hx Seizures, Hx Spinal Cord Injury, Hx Transient Ischemic Attacks (TIA), Other Neuro Impairments/Disorders Psychiatric History: Reports: Hx Anxiety, Hx Depression, Hx Panic Disorder, Hx Inpatient Treatment, Hx Bipolar Disorder, Hx Suicide Attempt, Hx Substance Abuse - in recovery Denies: Hx Attention Deficit Hyperactivity Disorder, Hx Autism, Hx Eating Disorder, Hx Oppositional Swisher Disorder, Hx Post Traumatic Stress Disorder, Hx Community Mental Health Tx, Hx Schizophrenia, Hx of Violent Episodes Against Others, Other Psychiatric Issues/Disorders - Cancer History Hx Hematologic Symptoms: No Hx Chemotherapy: No Hx Radiation Therapy: No Hx Palliative Cancer Treatment: No - Surgical History Hx Anesthesia Reactions: No - Immunization History Date of Tetanus Vaccine: unknown Date of Influenza Vaccine: none Infectious Disease History: No Infectious Disease History: Reports: Hx Hepatitis - HepC Denies: Hx Clostridium Difficile, Hx Human Immunodeficiency Virus (HIV), Hx of Known/Suspected MRSA, Hx Shingles, Hx Tuberculosis, History Other Infectious Disease, Traveled Outside the [place] in Last 30 Days - Family History Known Family History: Positive: Cardiac Disease, Diabetes, Other - CVA - Social History Alcohol Use: Daily Alcohol Amount: Pt stated that he has 8-12 24 Oz cans per day/pint liqour Hx Substance Use: Yes Substance Use Type: Reports: Cocaine, Marijuana Substance Use Comment - Amount & Last Used: when its available Hx Tobacco Use: Yes Smoking Status (MU): Heavy Every Day Tobacco Smoker Type: Cigarettes Have You Smoked in the Last Year: Yes Review of Systems Positive: Other - lacerations to the left calf Psychological: Other - SI, anger All Other Systems Reviewed And Are Negative: Yes Physical Exam - Summary Physical Exam Summary: Appearance: Appears intoxicated, Well-nourished, lying in bed comfortable Skin: Two long linear and mostly superficial lacerations to the left calf, Warm , dry, no obvious rash Eyes: sclera anicteric, no conjunctival pallor ENT: mucous membranes moist Neck: deferred Respiratory: No signs of respiratory distress Cardiovascular: Appears well perfused, pulses are nml Abdomen: deferred Musculoskeletal: Moving all 4 extremities without obvious discomfort Neurological: Awake and alert, mentation is normal, speech is fluent and appropriate Psychiatric: States suicidality and keeps saying he wants to but is vague about plan Triage Information Reviewed: Yes Vital Signs On Initial Exam: Initial Vitals Temp Pulse Resp BP Pulse Ox 97.7 F 81 18 147/106 96 06/06/19 19:13 06/06/19 19:13 06/06/19 19:13 06/06/19 19:13 06/06/19 19:13 Vital Signs Reviewed: Yes Procedures - Laceration/Wound Repair 1 Location: lower extremity - left calf Description: Linear Anesthesia: Local, Lido Length, Depth and Shape: long linear Laceration/Wound Explored: clean Closure: Single Layer Suture Type: Nylon - 5-0 2 Location: lower extremity - left calf Description: Linear Length, Depth and Shape: long linear Closure: Skin Adhesive - dermabond Diagnostics - Vital Signs Vital Signs Temp Pulse Resp BP Pulse Ox 06/06/19 19:13 97.7 F 81 18 147/106 96 - Laboratory Result Diagrams: 06/06/19 20:09 06/06/19 20:09 Lab Statement: Any lab studies that have been ordered have been reviewed, and results considered in the medical decision making process. - Radiology Ribs with Chest XR Radiology Interpretation Completed By: ED Physician Summary of Radiographic Findings: No evidence for fracture. ED physician has interpreted this report. Pending official read. Re-Evaluation - Re-Evaluation First Eval Re-Evaluation Time: 20:13 Comment: Patient states he fell a few days ago and is now complaining of rib pain. We will order XR. Course/Dx - Course Course Of Treatment: Patient is a y/o M brought in as 2208 for alcohol intoxication, SI without a plan, and anger, leading to self-inflicted lacerations to the left calf with mental health history with suicide attempt with cutting, substance abuse, and inpatient treatment. Upon physical exam, the patient appears to be intoxication and continuously states he wants to but is vague about a plan, and he exhibits two long linear lacerations on the left calf which are primarily superficial. One laceration was sutured at the end where it was deep with 5-0 nylon, and the second was closed with dermabond. He was administered Ativan, Haldol, and Benadryl and will be provided sedation instructions upon discharge. Blood work is primarily within normal limits but reveals MPV of 6.9, abs monos of 1.0, AST of 81, and TSH of 8.37. UA is negative for infection. Toxicology screen results show serum alcohol of 305 and is also positive for benzodiazepines, cocaine, and cannabinoids. Ribs with Chest x-ray, per my interpretation, reveals no evidence for fracture. The patient is a sign-out to Dr. Gil Farias MD, from Dr. Anthony Greer MD, at change of shift at 0700 on 06/07/19, pending sobriety, MHE, and disposition. - Differential Dx/Clinical Impression Provider Diagnosis: Substance induced mood disorder Discharge ED - Sign-Out/Discharge Documenting (check all that apply): Sign-Out Patient Signing out patient TO: Gil Farias - Patient is a sign-out to Dr. Gil Farias MD, at change of shift at 0700 on 06/07/19, pending sobriety, MHE, and disposition. Patient Received Moderate/Deep Sedation with Procedure: Yes - Discharge Plan Condition: Stable Disposition: HOME Patient Education Materials: Mood Disorders (ED), Moderate Sedation (ED) Referrals: Luh Luis MD [Primary Care Provider] - - Billing Disposition and Condition Condition: STABLE Disposition: Home - Attestation Statements Document Initiated by Giorgio: Yes Documenting Tripibe: Neha Baker Provider For Whom Giorgio is Documenting (Include Credential): Dr. Anthony Greer MD Scribe Attestation: INeha scribed for Dr. Anthony Greer MD on 06/15/19 at 1632. Scribe Documentation Reviewed: Yes Provider Attestation: The documentation as recorded by the Neha carreon accurately reflects the service I personally performed and the decisions made by me, Dr. Anthony Greer MD Status of Scribe Document: Viewed
[2019-06-06] MEDS ORDERED: LORazepam INJ* 2 MG/ML 1 ML VIAL IM ONE (19:59)
[2019-06-06] MEDS ORDERED: Haloperidol INJ IV/IM* 5 MG/ML AMP IM ONE (19:59)
[2019-06-06] MEDS ORDERED: diPHENhydraMINE IV* 50 MG/ML 1 ml VIAL (BENADRYL) IM ONE (19:59)
[2019-06-06 20:17] LABS: ABS Basophils 0.1 10^3/ul (0-0.2); ABS Eosinophils 0.3 10^3/ul (0-0.6); ABS Lymphocytes 4.2 10^3/ul (1.0-4.8); ABS Neutrophils 4.8 10^3/ul (1.5-7.7); Eosinophil % 2.5 %; Hematocrit 44 % (42-52); Hemoglobin 15.1 g/dL (14.0-18.0); Lymphocyte % 40.7 %; Mean Corpuscular HGB Conc 34 g/dL (31-36); Mean Corpuscular Hemoglobin 31 pg (27-31); Mean Corpuscular Volume 91 fL (80-94); Mean Platelet Volume 6.9 fL (7.4-10.4); Nucleated Red Blood Cells % 0.1; Platelet Count 193 10^3/uL (150-450); Red Blood Count 4.89 10^6 /uL (4.18-5.48); Red Cell Distribution Width 15 % (10-15); White Blood Count 10.4 10^3/uL (3.5-10.8)
[2019-06-06] MEDS ORDERED: Lorazepam PYXIS KEY ONE (20:20)
[2019-06-06 20:28] LABS: Albumin 4.4 g/dL (3.2-5.2); Anion Gap 10 mmol/L (2-11); CO2 Carbon Dioxide 25 mmol/L (22-32); Calcium 8.8 mg/dL (8.6-10.3); Chloride 109 mmol/L (101-111); Potassium 4.1 mmol/L (3.5-5.0); Sodium 144 mmol/L (135-145)
[2019-06-06 20:34] LABS: ALT 34 U/L (7-52); AST 81 U/L (13-39); Albumin/Globulin Ratio 1.1 (1-3); Alkaline Phosphatase 101 U/L (34-104); BUN/Creatinine Ratio 8.6 (8-20); Blood Urea Nitrogen 8 mg/dL (6-24); EGFR African American 106.3 (>60); EGFR Non-African American 87.9 (>60); Globulin 4.1 g/dL (2-4); Glucose 99 mg/dL (70-100); Total Protein 8.5 g/dL (6.4-8.9)
[2019-06-06 20:35] LABS: Alcohol 305 mg/dL (<10); Salicylate < 2.50 mg/dL (<30)
[2019-06-06 20:49] LABS: Acetaminophen < 15 mcg/mL
[2019-06-06 21:00] LABS: TSH (Thyroid Stimulating Horm) 8.37 mcIU/mL (0.34-5.60)
[2019-06-06 21:08] LABS: Urine Appearance Clear; Urine Bilirubin Negative (Negative); Urine Blood Negative (Negative); Urine Color Straw; Urine Glucose Negative (Negative); Urine Ketones Negative (Negative); Urine Nitrite Negative (Negative); Urine Protein Negative (Negative); Urine Specific Gravity 1.004 (1.010-1.030); Urine Urobilinogen Negative (Negative)
[2019-06-06 21:20] LABS: Urine Benzodiazepine Screen Presumptive Positive (None Detect); Urine Opiates Screen None Detected (None Detect)
--- NOTE | 2019-06-07 10:03 | ED ---
Progress - Progress Note Progress Note: Patient is received as a sign out from Dr. Greer to Dr. Farias at 0700 06/07/19 shift change pending sobriety and MHE of this mental health patient. Patient was medically cleared for MHE 1031 - worker Desmond reports that the patient's case has been reviewed by Dr. Luong, patient to be discharged to home w/ Dx of substance induced mood disorder. Re-Evaluation - Re-Evaluation First Eval Re-Evaluation Time: 10:31 Comment: 1031 - worker Desmond reports that the patient's case has been reviewed by Dr. Luong, patient to be discharged to home w/ Dx of substance induced mood disorder. Course/Dx - Course Course Of Treatment: Patient is received as a sign out from Dr. Greer to Dr. Farias at 0700 06/07/19 shift change pending sobriety and MHE of this mental health patient. Patient was medically cleared for MHE. 1031 - worker Desmond reports that the patient's case has been reviewed by Dr. Luong, patient to be discharged to home w/ Dx of substance induced mood disorder. - Diagnoses Provider Diagnoses: Substance induced mood disorder - Provider Notifications Discussed Care Of Patient With: Ankit Luong Time Discussed With Above Provider: 10:31 Instructed by Provider To: Other - Andrew - janet Logan reports that the patient's case has been reviewed by Dr. Luong, patient to be discharged to home w/ Dx of substance induced mood disorder. Discharge - Sign-Out/Discharge Documenting (check all that apply): Patient Departure - discharge Patient Received Moderate/Deep Sedation with Procedure: No - Discharge Plan Condition: Stable Disposition: HOME Patient Education Materials: Mood Disorders (ED), Moderate Sedation (ED) Referrals: Luh Luis MD [Primary Care Provider] - - Billing Disposition and Condition Condition: STABLE Disposition: Home - Attestation Statements Document Initiated by Scribe: Yes Documenting Scribe: MIO MILLER Provider For Whom Giorgio is Documenting (Include Credential): MILVIA FARIAS MD Scribe Attestation: MIO Ruiz, scribed for MILVIA FARIAS MD on 06/08/19 at 0734. Scribe Documentation Reviewed: Yes Provider Attestation: The documentation as recorded by the scribe, MIO MILLER accurately reflects the service I personally performed and the decisions made by me, MILVIA FARIAS MD Status of Giorgio Document: Viewed
[2019-06-07 10:43] VITALS: BP 153/98
== END 2019-06-07 10:45 | disposition home or self-care (01) ==
LOC: ED 19:12
DX: F19.94 Other psychoactive substance use, unspecified with psychoactive substance-induced mood disorder (principal); F10.929 Alcohol use, unspecified with intoxication, unspecified; R45.851 Suicidal ideations; E11.9 Type 2 diabetes mellitus without complications; E03.9 Hypothyroidism, unspecified; E78.00 Pure hypercholesterolemia, unspecified; I10 Essential (primary) hypertension; J44.9 Chronic obstructive pulmonary disease, unspecified; F41.9 Anxiety disorder, unspecified; F32.9 Major depressive disorder, single episode, unspecified; F17.210 Nicotine dependence, cigarettes, uncomplicated
CPT/HCPCS: 12001; 36415; 80053; 80307; 80320; 80329; 81003; 84443; 85025; 96372; 99285; G0480; J1200; J1630; J2060

== ENCOUNTER 2019-06-24 12:25 | Inpatient (IN) | payer OTHER ==
[2019-06-24] MEDS ORDERED: LORazepam INJ* 2 MG/ML 1 ML VIAL ONE (12:47)
[2019-06-24] MEDS ORDERED: Lidocaine 2% w/ EPI 1:200,000* 20 ML SDV VIAL ONE (12:50)
[2019-06-24] MEDS ORDERED: Haloperidol INJ IV/IM* 5 MG/ML AMP ONE (12:50)
[2019-06-24] MEDS ORDERED: diPHENhydraMINE IV* 50 MG/ML 1 ml VIAL (BENADRYL) ONE (12:50)
--- NOTE | 2019-06-24 12:54 | ED ---
Psychiatric Complaint - HPI Summary HPI Summary: Patient is a 34 y/o M presenting to ED for MHE. Staff from [facility], reports that the patient and his partner had both overdosed last week. His partner as a result of the overdose. Since then, the patient has engaged in cutting behavior. She also reports that the patient uses cocaine, heroin, crack, and consumes alcohol. Patient is not on suboxone. The patient presents to ED with laceration to his left forearm. When asked if he self-inflicted this laceration, he answers affirmatively and goes on to say, "I should have cut the whole goddamn arm off". When asked why he did this, he states, "Because I felt like it". Patient makes repeated requests for his cell phone. He was informed that as he is under suicide watch, he cannot have his phone at this time. He notes that he drank "a couple of drinks" today. Patient states that he wants to leave "right now" and attempted to exit his room. Patient was escorted back to his bed. When asked if he will try to leave again, he replies, "yeah". Chemical restraint to be administered. Patient does not report fever, chills, erythema of eyes, sore throat, chest pain, SOB, cough, abdominal pain, N/V, dysuria, hematuria, myalgia, edema, rash and dizziness. Home medications and allergies are reviewed. - History Of Current Complaint Time Seen by Provider: 06/24/19 12:27 Hx Obtained From: Patient Onset/Duration: Lasting Weeks, Still Present Timing: Constant Aggravating Factor(s): Recent Stress Has Suicidal: Denies: Thoughts - Allergies/Home Medications Allergies/Adverse Reactions: Allergies Allergy/AdvReac Type Severity Reaction Status Date / Time No Known Allergies Allergy Verified 06/09/19 20:38 Home Medications: Home Medications Escitalopram * [Lexapro *] 20 mg PO DAILY 06/24/19 [History Confirmed 06/24/19] Gabapentin CAP(*) [Neurontin 300 CAP(*)] 300 mg PO TID 06/24/19 [History Confirmed 06/24/19] Mirtazapine TAB* [Remeron TAB*] 15 mg PO BEDTIME 06/24/19 [History Confirmed 03/07] Propranolol TAB* [Inderal TAB*] 10 mg PO DAILY 06/24/19 [History Confirmed 06/24] PMH/Surg Hx/FS Hx/Imm Hx Endocrine/Hematology History: Reports: Hx Diabetes, Hx Thyroid Disease - hypothyroidism Denies: Hx Anticoagulant Therapy, Hx Blood Disorders, Hx Blood Transfusions, Hx Bone Marrow Disease, Hx Systemic Lupus Erythematosus, Hx Sickle Cell Disease , Hx Anemia, Hx Unexplained Bleeding, Other Endocrine/Hematological Disorders Cardiovascular History: Reports: Hx Hypercholesterolemia, Hx Hypertension Denies: Hx Aneurysm, Hx Angina, Hx Angioplasty, Hx Auto Implanted Cardiovert Defib, Hx Cardiac Arrest, Hx Cardiomegaly, Hx Congenital Heart Disease, Hx Congestive Heart Failure, Hx Coronary Artery Disease, Hx Deep Vein Thrombosis, Hx Embolism, Hx Hypotension, Hx Pacemaker/ICD, Hx Peripheral Vascular Disease, Hx Rheumatic Fever, Hx Syncope, Hx Valvular Heart Disease, Other Cardiovascular Problems/Disorders Respiratory History: Reports: Hx Asthma, Hx Chronic Obstructive Pulmonary Disease (COPD) - getting there, Hx Sleep Apnea Denies: Hx Bronchopulmonary Dysplasia, Hx Chronic Bronchitis, Hx Cystic Fibrosis, Hx Lung Cancer, Hx Pleural Effusion, Hx Pneumonia, Hx Pulmonary Edema , Hx Pulmonary Embolism, Hx Seasonal Allergies, Other Respiratory Problems/ Disorders GI History: Denies: Hx Cirrhosis, Hx Crohn's Disease, Hx Diverticulosis, Hx Gall Bladder Disease, Hx Gastroesophageal Reflux Disease, Hx Gastrointestinal Bleed, Hx Hiatal Hernia, Hx Irritable Bowel, Hx Jaundice, Hx Obstructive Bowel, Hx Ileostomy, Hx Pyloric Stenosis, Hx Ulcer, Other GI Disorders History: Reports: Hx Acute Renal Failure, Other Problems/Disorders - Liver failure Denies: Hx Benign Prostatic Hyperplasia, Hx Chronic Renal Failure, Hx Dialysis, Hx Kidney Infection, Hx Kidney Stones, Hx Renal Disease Musculoskeletal History: Denies: Hx Arthritis, Hx Back Problems, Hx Bursitis, Hx Congenital Bone Abnormalities, Hx Fibromyalgia, Hx Gout, Hx Orthopedic Injury, Hx Osteoporosis, Hx Scoliosis, Hx Tendonitis, Other Musculoskeletal History Sensory History: Denies: Hx Cataracts, Hx Contacts or Glasses, Hx Eye Injury, Hx Eye Prosthesis, Hx Glaucoma, Hx Legally Blind, Hx Macular Degeneration, Hx Vision Problem, Hx Deafness, Hx Hearing Aid, Hx Hearing Problem, Other Sensory Impairments Opthamlomology History: Denies: Hx Cataracts, Hx Contacts or Glasses, Hx Eye Injury, Hx Eye Prosthesis, Hx Glaucoma, Hx Legally Blind, Hx Macular Degeneration, Hx Vision Problem, Other Sensory Impairments Neurological History: Denies: Hx Dementia, Hx Developmental Delay, Hx Headaches, Hx Migraine, Hx Nerve Disease, Hx Seizures, Hx Spinal Cord Injury, Hx Transient Ischemic Attacks (TIA), Other Neuro Impairments/Disorders Psychiatric History: Reports: Hx Anxiety, Hx Depression, Hx Panic Disorder, Hx Inpatient Treatment, Hx Bipolar Disorder, Hx Suicide Attempt, Hx Substance Abuse - in recovery Denies: Hx Attention Deficit Hyperactivity Disorder, Hx Autism, Hx Eating Disorder, Hx Oppositional [place] Disorder, Hx Post Traumatic Stress Disorder, Hx Community Mental Health Tx, Hx Schizophrenia, Hx of Violent Episodes Against Others, Other Psychiatric Issues/Disorders - Cancer History Hx Hematologic Symptoms: No Hx Chemotherapy: No Hx Radiation Therapy: No Hx Palliative Cancer Treatment: No - Surgical History Hx Anesthesia Reactions: No - Immunization History Date of Tetanus Vaccine: unknown Date of Influenza Vaccine: none Infectious Disease History: No Infectious Disease History: Reports: Hx Hepatitis - HepC Denies: Hx Clostridium Difficile, Hx Human Immunodeficiency Virus (HIV), Hx of Known/Suspected MRSA, Hx Shingles, Hx Tuberculosis, History Other Infectious Disease, Traveled Outside the [place] in Last 30 Days - Family History Known Family History: Positive: Cardiac Disease, Diabetes, Other - CVA - Social History Alcohol Use: Daily Alcohol Amount: Pt stated that he has 8-12 24 Oz cans per day/pint liqour Hx Substance Use: Yes Substance Use Type: Reports: Cocaine, Heroin, Marijuana Substance Use Comment - Amount & Last Used: when its available Hx Tobacco Use: Yes Smoking Status (MU): Heavy Every Day Tobacco Smoker Type: Cigarettes Have You Smoked in the Last Year: Yes Review of Systems Negative: Fever, Chills Negative: Erythema Negative: Sore Throat Negative: Chest Pain Negative: Shortness Of Breath, Cough Negative: Abdominal Pain, Vomiting, Nausea Negative: dysuria, hematuria Negative: Myalgia, Edema Skin: Other - positive - left forearm laceration Negative: Rash Neurological: Other - negative - dizziness Psychological: Other - positive - self-harm; patient denies SI All Other Systems Reviewed And Are Negative: Yes Physical Exam - Summary Physical Exam Summary: Constitutional: Well-developed, Well-nourished, Alert. (-) Distressed Skin: Warm, Dry; 10 cm laceration to left forearm HENT: Normocephalic; Atraumatic Eyes: Conjunctiva normal Neck: Musculoskeletal ROM normal neck. (-) JVD, (-) Stridor, (-) Tracheal deviation Cardio: Rhythm regular, rate normal, Heart sounds normal; Intact distal pulses; The pedal pulses are 2+ and symmetric. Radial pulses are 2+ and symmetric. (-) Murmur Pulmonary/Chest wall: Effort normal. (-) Respiratory distress, (-) Wheezes, (-) Rales Abd: Soft, (-) tenderness, (-) Distension, (-) Guarding, (-) Rebound Musculoskeletal: (-) Edema Lymph: (-) Cervical adenopathy Neuro: Patient has some slurred speech; Alert, Oriented x3 Psych: Uncooperative Triage Information Reviewed: Yes Vital Signs On Initial Exam: Initial Vitals Temp Pulse Resp BP Pulse Ox 99.8 F 84 18 144/90 95 06/24/19 12:28 06/24/19 12:28 06/24/19 12:28 06/24/19 12:28 06/24/19 12:28 Vital Signs Reviewed: Yes Procedures - Procedure Summary Procedure Summary: 8 sutures were used, 3-0 ethilon. Single, uninterrupted suture was done. Wound was explored. The laceration goes to the subcutaneous tissue. Fascia and muscle are intact. ROM with wrist flexion and extension are intact, strength intact. Laceration was copiously irrigated with 1 L NS and 200 ml chlorhexidine under pressure. - Laceration/Wound Repair 1 Location: upper extremity - left forearm Description: Linear Anesthesia: Local, 2.0%, Lido, Epi Length, Depth and Shape: straight 10 cm laceration Irrigated w/ Saline (ccs): 1,000 Closure: Single Layer Suture Type: Other - 3-0 ethilon Number of Sutures: 8 Layer Closure?: Yes Sterile Dressing Applied?: Yes Diagnostics - Vital Signs Vital Signs Temp Pulse Resp BP Pulse Ox 06/24/19 12:28 99.8 F 84 18 144/90 95 - Laboratory Result Diagrams: 06/24/19 13:52 06/24/19 13:52 Lab Statement: Any lab studies that have been ordered have been reviewed, and results considered in the medical decision making process. - Radiology RIGHT HAND X-RAY Radiology Interpretation Completed By: Radiologist Summary of Radiographic Findings: RIGHT HAND X-RAY IMPRESSION: EVIDENCE OF REMOTE TRAUMA. NO ACUTE OSSEOUS INJURY. IF SYMPTOMS PERSIST, RECOMMEND REPEAT. IMAGING. THIS REPORT WAS REVIEWED BY DR. GREEN. Course/Dx - Course Course Of Treatment: Patient is a 34 y/o M presenting to ED for MHE. Staff from [facility], [facility], reports that the patient and his partner had both overdosed last week. His partner as a result of the overdose. Since then, the patient has engaged in cutting behavior. She also reports that the patient uses cocaine, heroin, crack, and consumes alcohol. Patient is not on suboxone. The patient presents to ED with laceration to his left forearm. When asked if he self-inflicted this laceration, he answers affirmatively and goes on to say, "I should have cut the whole rishin arm off". When asked why he did this, he states, "Because I felt like it". Patient makes repeated requests for his cell phone. He was informed that as he is under suicide watch, he cannot have his phone at this time. He notes that he drank "a couple of drinks" today. Patient states that he wants to leave "right now" and attempted to exit his room. Patient was escorted back to his bed. When asked if he will try to leave again, he replies, "yeah". Chemical restraint to be administered. Patient received Ativan 2 mg, Haldol 5 mg, and Benadryl 50 mg IM. On physical exam, patient is noted to have an 10 cm laceration to his left forearm. 8 sutures were used, 3-0 ethilon. Single, uninterrupted suture was done. Wound was explored. The laceration goes to the subcutaneous tissue. Fascia and muscle are intact. ROM with wrist flexion and extension are intact, strength intact. Laceration was copiously irrigated with 1 L NS and 200 ml chlorhexidine under pressure. After lacertion was completed, patient attempted to leave ED. He went to ambulance bay doors, and when they did not open, began to punch them with his right hand. Staff and security were able to verbally convince the patient back to his bed. Ketamine 300 mg IM was administered. Patient denies pain in right hand. There is no bony tenderness, somewhat edematous. RIGHT HAND X-RAY IMPRESSION: EVIDENCE OF REMOTE TRAUMA. NO ACUTE OSSEOUS INJURY. IF SYMPTOMS PERSIST, RECOMMEND REPEAT. IMAGING. Bloodwork was obtained. Patient received WBC 11.4, Hgb 13.4, Hct 41, RDW 16, MPV 6.6, absolute monos 1.3, glucose 106, AST 41, alk phos 120, TSH 15.63. UA was negative. Urine tox showed positive benzodiazepines , cocaine, cannabinoids. Serum alcohol was 264. Patient is signed out to Dr. Harris at 1900 06/24/19 shift change pending medical clearance and MHE of this patient. - Differential Dx/Clinical Impression Provider Diagnosis: Self-harm, Laceration of left forearm, Alcohol intoxication Discharge ED - Sign-Out/Discharge Documenting (check all that apply): Sign-Out Patient Signing out patient TO: Erica Harris - Discharge Plan Condition: Stable Referrals: Luh Luis MD [Primary Care Provider] - - Attestation Statements Document Initiated by Scribe: Yes Documenting Scribe: MIO MILLER Provider For Whom Scribe is Documenting (Include Credential): PEREZ GREEN MD Scribe Attestation: I, MIO MILLER, scribed for PEREZ GREEN MD on 06/24/19 at 2013. Status of Scribe Document: Ready
[2019-06-24] MEDS ORDERED: KETAMINE HCL* 50 MG/ML 10 ML VIAL IM ONE (13:20)
[2019-06-24] MEDS ORDERED: Ondansetron ODT TAB* 4 MG PO ONE (13:27)
[2019-06-24 14:04] LABS: Urine Appearance Clear; Urine Bilirubin Negative (Negative); Urine Blood Negative (Negative); Urine Color Straw; Urine Glucose Negative (Negative); Urine Ketones Negative (Negative); Urine Nitrite Negative (Negative); Urine Protein Negative (Negative); Urine Specific Gravity 1.004 (1.010-1.030); Urine Urobilinogen Negative (Negative)
[2019-06-24 14:12] LABS: ABS Basophils 0.1 10^3/ul (0-0.2); ABS Eosinophils 0.3 10^3/ul (0-0.6); ABS Lymphocytes 4.5 10^3/ul (1.0-4.8); ABS Monocytes 1.3 10^3/ul (0-0.8); ABS Neutrophils 5.2 10^3/ul (1.5-7.7); Eosinophil % 2.7 %; Hematocrit 41 % (42-52); Hemoglobin 13.4 g/dL (14.0-18.0); Lymphocyte % 39.3 %; Mean Corpuscular HGB Conc 33 g/dL (31-36); Mean Corpuscular Hemoglobin 30 pg (27-31); Mean Corpuscular Volume 92 fL (80-94); Mean Platelet Volume 6.6 fL (7.4-10.4); Nucleated Red Blood Cells % 0.1; Platelet Count 245 10^3/uL (150-450); Red Blood Count 4.41 10^6 /uL (4.18-5.48); Red Cell Distribution Width 16 % (10-15); White Blood Count 11.4 10^3/uL (3.5-10.8)
[2019-06-24 14:28] LABS: ALT 18 U/L (7-52); AST 41 U/L (13-39); Albumin 3.8 g/dL (3.2-5.2); Alkaline Phosphatase 120 U/L (34-104); Anion Gap 6 mmol/L (2-11); BUN/Creatinine Ratio 12.4 (8-20); Blood Urea Nitrogen 12 mg/dL (6-24); CO2 Carbon Dioxide 25 mmol/L (22-32); Chloride 111 mmol/L (101-111); EGFR African American 101.3 (>60); EGFR Non-African American 83.7 (>60); Globulin 3.9 g/dL (2-4); Glucose 106 mg/dL (70-100); Potassium 4.1 mmol/L (3.5-5.0); Sodium 142 mmol/L (135-145); Total Protein 7.7 g/dL (6.4-8.9)
[2019-06-24 14:30] LABS: Urine Benzodiazepine Screen Presumptive Positive (None Detect); Urine Opiates Screen None Detected (None Detect)
[2019-06-24 14:34] LABS: Acetaminophen < 15 mcg/mL; Alcohol 264 mg/dL (<10); Salicylate < 2.50 mg/dL (<30)
[2019-06-24 14:48] LABS: TSH (Thyroid Stimulating Horm) 15.63 mcIU/mL (0.34-5.60)
--- NOTE | 2019-06-24 19:52 | ED ---
Progress - Progress Note Progress Note: This pt is a sign out to Dr. Harris from Dr. Mccullough at shift change 06/24/191899 pending a MHE and disposition. Course/Dx - Course Course Of Treatment: This pt is a sign out to Dr. Harris from Dr. Mccullough at shift change 06/24/191899 pending a MHE and disposition. Dr. Luong was consulted at 2121. He stated that the pt will be admitted to [facility] [place]'s Psych fatima by Dr. Luong with a Dx of depression at 2138. - Diagnoses Provider Diagnoses: Depression - Provider Notifications Discussed Care Of Patient With: Ankit Luong Time Discussed With Above Provider: 21:23 Instructed by Provider To: Admit As Inpatient Admit/Transition Orders Completed By ED Provider: Yes Discharge ED - Sign-Out/Discharge Documenting (check all that apply): Patient Departure - admitted - Discharge Plan Condition: Stable Disposition: PSYCHIATRIC FACILITY-[facility] [place] Referrals: Luh Luis MD [Primary Care Provider] - - Billing Disposition and Condition Condition: STABLE Disposition: Psychiatric Facility [facility] [place] [facility] - Attestation Statements Document Initiated by Scribe: Yes Documenting Scribe: Isaac Norris Provider For Whom Scribe is Documenting (Include Credential): Erica Hernandez MD Scribe Attestation: IIsaac, scribed for Erica Hernandez MD on 06/24/19 at 2212. Scribe Documentation Reviewed: Yes Provider Attestation: The documentation as recorded by the Isaac carreon accurately reflects the service I personally performed and the decisions made by me, Erica Hernandez MD Status of Scribe Document: Viewed
[2019-06-24] MEDS ORDERED: Ibuprofen TAB* 400 MG PO ONE (23:37)
[2019-06-25] MEDS ORDERED: Al Hydrox/Mg Hydrox/Simet LIQ* 30 ML UDC PO PRN (00:46)
[2019-06-25] MEDS: Vitamin THERAPEUTIC TAB PO SCH (11:21)
[2019-06-25] MEDS: Gabapentin CAP(*) 300 MG PO SCH ×4 (11:21→20:22)
[2019-06-25] MEDS: Thiamine TAB* 100 MG TAB PO SCH (11:21)
[2019-06-25] MEDS: Folic Acid TAB* 1 MG PO SCH (11:21)
[2019-06-25] MEDS: LORazepam TAB(*) 1 MG PO SCH (11:22)
[2019-06-25] MEDS: Escitalopram * 20 MG TABLET PO SCH (12:03)
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
[2019-06-25] MEDS: Diazepam TAB(*) 5 MG PO PRN (16:25)
[2019-06-25] MEDS: Mirtazapine TAB* 15 MG PO SCH (20:21)
[2019-06-25] MEDS: diPHENhydraMINE PO* 50 MG PO PRN (20:22)
[2019-06-25] MEDS: chlorproMAZINE TAB* 100 MG PO PRN (20:36)
[2019-06-25] MEDS: Acetaminophen TAB* 325 MG PO PRN (20:37)
[2019-06-25] MEDS: Nicotine* 2MG (FRUIT FLAVOR) GUM PO PRN (21:24)
[2019-06-26] MEDS: Acetaminophen TAB* 325 MG PO PRN ×2 (08:23→13:00)
[2019-06-26] MEDS: Folic Acid TAB* 1 MG PO SCH (08:23)
[2019-06-26] MEDS: Gabapentin CAP(*) 300 MG PO SCH ×3 (08:23→22:20)
[2019-06-26] MEDS: Diazepam TAB(*) 5 MG PO PRN ×2 (08:23→17:25)
[2019-06-26] MEDS: Thiamine TAB* 100 MG TAB PO SCH (08:24)
[2019-06-26] MEDS: Vitamin THERAPEUTIC TAB PO SCH (08:24)
[2019-06-26] MEDS: Escitalopram * 20 MG TABLET PO SCH (08:25)
[2019-06-26 09:05] LABS: HDL Cholesterol 40.5 mg/dL
[2019-06-26 09:23] LABS: Free T4 0.59 ng/dL (0.61-1.12)
[2019-06-26] MEDS: chlorproMAZINE TAB* 100 MG PO PRN (13:00)
[2019-06-26] MEDS: Nicotine* 2MG (FRUIT FLAVOR) GUM PO PRN ×2 (13:00→15:18)
[2019-06-26] MEDS: LORazepam TAB(*) 1 MG PO SCH ×2 (16:26→23:36)
[2019-06-26] MEDS: Mirtazapine TAB* 15 MG PO SCH (22:20)
[2019-06-27] MEDS: Diazepam TAB(*) 5 MG PO PRN ×4 (01:53→18:06)
[2019-06-27] MEDS: chlorproMAZINE TAB* 100 MG PO PRN ×2 (08:47→16:02)
[2019-06-27] MEDS: Vitamin THERAPEUTIC TAB PO SCH (08:48)
[2019-06-27] MEDS: Folic Acid TAB* 1 MG PO SCH (08:48)
[2019-06-27] MEDS: Thiamine TAB* 100 MG TAB PO SCH (08:48)
[2019-06-27] MEDS: Gabapentin CAP(*) 300 MG PO SCH ×3 (08:48→23:09)
[2019-06-27] MEDS: Escitalopram * 20 MG TABLET PO SCH (08:49)
[2019-06-27] MEDS: LORazepam TAB(*) 1 MG PO SCH (09:21)
[2019-06-27] MEDS: Acetaminophen TAB* 325 MG PO PRN ×2 (09:52→16:02)
[2019-06-27] MEDS: Nicotine* 2MG (FRUIT FLAVOR) GUM PO PRN (11:59)
--- NOTE | 2019-06-27 15:40 | PN ---
Subjective - Subjective Date of Service: 06/27/19 Service Type: 11148 Hosp care 15 min low complexity Subjective: Reports he did not intend to cut himself at [facility] and does not intend to kill himself, though he is unable to specify how he cut himself if he did not intend to. Mused with me that he is the only one in the family who does not have heart disease. REports he will slleep a little, then wake up, in cycles, and in the end sits before me yawning, looking as if he is not getting enough sleep. Reports he just woke up as he is meeting with me to explain the yawning , and slightly slurred speech. Feels well cared for here. Objective - General Observations Appearance: Disheveled Appears Stated Age: Yes Stature: WNL Posture: WNL Eye Contact: Average Behavior/Activity: Slowed - Interaction Observations Attitude Towards Examiner: Cooperative Stated Mood: Euthymic - "I'm not in a bad mood. I just want to go home." Affect: Blunted Speech Pattern/Tone: Normal Volume, Slurred Thought Process: Coherent, Goal Directed Perception: WNL Thought Content: WNL Hallucination Type: None Delusion Type: None - Cognitive Function Orientation: A&O x 4 Level of Consciousness: Awake, Alert, Appropriate Cognition: WNL Estimated Intelligence: Normal Judgment Within Normal Limits: Yes Ability to Make Reasonable Decisions: Mildly Impaired - Medication Compliance Cooperative with Inpatient Medication Regimen: Yes - Group Participation Participates in Group Activities: Yes - "I made today a couple, and yesterday." Assessment - Assessment Merits Inpatient Hospitalization: For Immediate Safety, For Stabilization, For Ongoing Evaluation, Consolidate Improvements Clinical Impression: Timothy has been readmitted for safety, assessment and treatment after presenting inebriated at [facility] and cutting himself there. He reports he is working with his girlfriend's daughter on getting over her passing and the overdose event leading to recent hospitalization. He is somewhat slowed psychomotorically. Plan - Plan Treatment Plan: Name: TIMOTHY HAMMONDS Birthdate: 1975 [id number] Continue current meds with [facility]. Encourage groups and milieu. Medications: Current Medications Acetaminophen (Tylenol Tab*) 650 mg PO Q4H PRN PRN Reason: PAIN or TEMP > 101 F Last Admin: 06/27/19 09:52 Dose: 650 mg Al Hydrox/Mg Hydrox/Simethicone (Maalox Plus*) 30 ml PO Q4H PRN PRN Reason: INDIGESTION Chlorpromazine HCl (Thorazine Tab*) 100 mg PO Q6H PRN PRN Reason: AGITATION Last Admin: 06/27/19 08:47 Dose: 100 mg Diazepam (Valium Tab(*)) 5 mg PO Q8H PRN PRN Reason: ANXIETY Last Admin: 06/27/19 09:57 Dose: 5 mg Diphenhydramine HCl (Benadryl Po*) 50 mg PO Q6H PRN PRN Reason: ANXIETY Last Admin: 06/25/19 20:22 Dose: 50 mg Escitalopram Oxalate (Lexapro *) 20 mg PO DAILY [facility] Last Admin: 06/27/19 08:49 Dose: 20 mg Folic Acid (Folvite Tab*) 1 mg PO DAILY [facility] Last Admin: 06/27/19 08:48 Dose: 1 mg Gabapentin (Neurontin Cap(*)) 300 mg PO TID [facility] Last Admin: 06/27/19 08:48 Dose: 300 mg Lorazepam (Ativan Tab(*)) 0 - 6 mg PO .PER [facility] PROTOCOL [facility]; Protocol Last Admin: 06/27/19 09:21 Dose: 2 mg Mirtazapine (Remeron Tab*) 15 mg PO BEDTIME [facility] Last Admin: 06/26/19 22:20 Dose: Not Given Multivitamins (Theragran Tab*) 1 tab PO DAILY [facility] Last Admin: 06/27/19 08:48 Dose: 1 tab Nicotine Polacrilex (Nicotine Gum*) 2 mg PO Q2H PRN PRN Reason: CRAVINGS Last Admin: 06/27/19 11:59 Dose: 2 mg Thiamine HCl (Vitamin B-1 Tab*) 100 mg PO DAILY [facility] Last Admin: 06/27/19 08:48 Dose: 100 mg - Discharge Plan Discharge Plan: Outpatient Follow Up Outpatient Program: File[facility] R[facility]
[2019-06-27] MEDS: diPHENhydraMINE PO* 50 MG PO PRN (18:06)
[2019-06-27] MEDS: Mirtazapine TAB* 15 MG PO SCH (23:09)
[2019-06-28] MEDS: diPHENhydraMINE PO* 50 MG PO PRN ×2 (01:01→20:31)
[2019-06-28] MEDS: chlorproMAZINE TAB* 100 MG PO PRN ×3 (01:01→15:32)
[2019-06-28] MEDS: Thiamine TAB* 100 MG TAB PO SCH (08:11)
[2019-06-28] MEDS: Folic Acid TAB* 1 MG PO SCH (08:12)
[2019-06-28] MEDS: Gabapentin CAP(*) 300 MG PO SCH ×3 (08:12→20:15)
[2019-06-28] MEDS: Escitalopram * 20 MG TABLET PO SCH (08:12)
[2019-06-28] MEDS: Diazepam TAB(*) 5 MG PO PRN (08:13)
[2019-06-28] MEDS: Vitamin THERAPEUTIC TAB PO SCH (08:13)
[2019-06-28] MEDS: Acetaminophen TAB* 325 MG PO PRN ×3 (09:14→23:01)
[2019-06-28] MEDS: Nicotine* 2MG (FRUIT FLAVOR) GUM PO PRN ×3 (10:39→20:20)
--- NOTE | 2019-06-28 11:39 | PN ---
Subjective - Subjective Date of Service: 06/28/19 Service Type: 15506 Hosp care 25 min moderate complexity Subjective: Patient continues to score on WAM and reports significant anxiety. He is circumstantial about stressors, including the need to be home to help care for his elderly mother. He presents as agreeable to recommendations to pursue in an outpatient setting. Patient quickly became agitated during conversation in regards to remaining hospitalized for continued alcohol withdrawal and benzodiazepine taper. He made intense eye contact and threatening statements in regards to suicidality. Objective - General Observations Appearance: Well Groomed Stature: Overweight Posture: Slumped Eye Contact: Intense Behavior/Activity: Agitated Assessment - Assessment Merits Inpatient Hospitalization: For Immediate Safety, For Stabilization Clinical Impression: Timothy has been readmitted for safety, assessment and treatment after presenting inebriated at [facility] and cutting himself there. He reports he is working with his girlfriend's daughter on getting over her passing and the overdose event leading to recent hospitalization. He continues to exhibit alcohol and benzodiazepine withdrawal. He merits hospitalization for immediate safety and stabilization. Plan - Plan Treatment Plan: Name: TIMOTHY HAMMONDS Birthdate: 1975 [id number] continue acute intensive psychiatric treatment. DC prn diazepam, continue WAM protocol. add clonidine 0.1mg BID prn anxiety. continue scheduled medications. discharge planning to include [facility] and alcohol and drug [place]. Continued Medication Management: Start Medication Medications: Current Medications Acetaminophen (Tylenol Tab*) 650 mg PO Q4H PRN PRN Reason: PAIN or TEMP > 101 F Last Admin: 06/28/19 09:14 Dose: 650 mg Al Hydrox/Mg Hydrox/Simethicone (Maalox Plus*) 30 ml PO Q4H PRN PRN Reason: INDIGESTION Chlorpromazine HCl (Thorazine Tab*) 100 mg PO Q6H PRN PRN Reason: AGITATION Last Admin: 06/28/19 09:14 Dose: 100 mg Diazepam (Valium Tab(*)) 5 mg PO Q8H PRN PRN Reason: ANXIETY Last Admin: 06/28/19 08:13 Dose: 5 mg Diphenhydramine HCl (Benadryl Po*) 50 mg PO Q6H PRN PRN Reason: ANXIETY Last Admin: 06/28/19 01:01 Dose: 50 mg Escitalopram Oxalate (Lexapro *) 20 mg PO DAILY [facility] Last Admin: 06/28/19 08:12 Dose: 20 mg Folic Acid (Folvite Tab*) 1 mg PO DAILY [facility] Last Admin: 06/28/19 08:12 Dose: 1 mg Gabapentin (Neurontin Cap(*)) 300 mg PO TID [facility] Last Admin: 06/28/19 08:12 Dose: 300 mg Lorazepam (Ativan Tab(*)) 0 - 6 mg PO .[facility] PROTOCOL [facility]; Protocol Last Admin: 06/27/19 09:21 Dose: 2 mg Mirtazapine (Remeron Tab*) 15 mg PO BEDTIME [facility] Last Admin: 06/27/19 23:09 Dose: Not Given Multivitamins (Theragran Tab*) 1 tab PO DAILY [facility] Last Admin: 06/28/19 08:13 Dose: 1 tab Nicotine Polacrilex (Nicotine Gum*) 2 mg PO Q2H PRN PRN Reason: CRAVINGS Last Admin: 06/28/19 10:39 Dose: 2 mg Thiamine HCl (Vitamin B-1 Tab*) 100 mg PO DAILY [facility] Last Admin: 06/28/19 08:11 Dose: 100 mg - Discharge Plan Discharge Plan: Inpatient Hospitalization
--- NOTE | 2019-06-28 11:51 | PN ---
BSU: Group Therapy Note - Service Type Service Type: [id number] Group Psychotherapy - CBT Group Note: Timothy was attentive and participatory in programming this morning, initiating discussion regarding anger management, as well as asking about depressive symptoms. Although he denied feeling depressed, he endorses significant vegatative symptoms, including insomnia and then excessive sleep patterns, with similar difficulties with eating. He was clear and coherent in conversation, and well related to staff and peers.
[2019-06-28] MEDS: LORazepam TAB(*) 1 MG PO SCH (13:07)
[2019-06-28] MEDS: cloNIDine TAB* 0.1 MG PO PRN (16:17)
[2019-06-28] MEDS: Mirtazapine TAB* 15 MG PO SCH (20:15)
[2019-06-29] MEDS: Folic Acid TAB* 1 MG PO SCH (08:44)
[2019-06-29] MEDS: Gabapentin CAP(*) 300 MG PO SCH (08:44)
[2019-06-29] MEDS: Escitalopram * 20 MG TABLET PO SCH (08:44)
[2019-06-29] MEDS: Vitamin THERAPEUTIC TAB PO SCH (08:45)
[2019-06-29] MEDS: Thiamine TAB* 100 MG TAB PO SCH (08:45)
[2019-06-29] MEDS: cloNIDine TAB* 0.1 MG PO PRN ×2 (08:47→12:41)
[2019-06-29] MEDS: chlorproMAZINE TAB* 100 MG PO PRN (08:47)
[2019-06-29 09:41] VITALS: BP 147/88
[2019-06-29] MEDS: Nicotine* 2MG (FRUIT FLAVOR) GUM PO PRN (10:54)
--- NOTE | 2019-06-29 11:30 | PN ---
BSU: Group Therapy Note - Service Type Service Type: 39874 Group Psychotherapy - Cognitive Behavioral Group Therapy ( CBT):Patient was attentive and participatory in CBT programming this morning, and remained in good behavioral control. Patient expressed positive insights regarding relevant treatment interventions and goals. Timothy was interested and active in discussion addressing symptoms and treatment of ptsd.
--- NOTE | 2019-06-29 12:34 | DCNOTE ---
Subjective - Subjective Service Types: 51232 Hosp DC Day Mgmt simple under 30 min Discharge Date: 06/29/19 Subjective: Patient reports improved mood and sleep. He denies SI or urges for self harm. He reports anxiety and states "the only thing that works I can't have" and references benzodiazepines. Patient education done regards early warning signs of anxiety and utilizing nonpharmological techniques first. We discussed the barrier that substances create in regards to pharmacology and current prescribed medications. Patient encouraged to continue mental health recovery efforts, including working with therapist and psychiatrist. He is receptive to suggestions such as PROS and Seeking Safety groups. Safe Act reporting done by proposal manager writer today. Objective - General Observations Appearance: Well Groomed Stature: Overweight Posture: WNL Eye Contact: Average Behavior/Activity: WNL - Interaction Observations Attitude Towards Examiner: Cooperative Stated Mood: Euthymic Affect: Full Speech Pattern/Tone: Clear, Appropriate, Normal Volume Thought Process: Coherent, Goal Directed Perception: WNL Thought Content: WNL Hallucination Type: None Delusion Type: None - Cognitive Function Orientation: A&O x 4 Level of Consciousness: Alert Cognition: WNL Estimated Intelligence: Normal Insight: WNL, Mostly Blames Others for Problems Judgment Within Normal Limits: Yes - Medication Compliance Cooperative with Inpatient Medication Regimen: Yes - Group Participation Participates in Group Activities: Yes DC Assessment - Assessment Clinical Impression: Timothy has been readmitted for safety, assessment and treatment after presenting inebriated at [facility] and cutting himself there. He has successfully detoxed from alcohol and benzodiazepines. He has denied suicidal ideation or urges for self harm throughout admission. He no longer meets criteria for involuntary admission and requests to be discharged. Clear for Discharge: Low Utility of Inpt Care Discharge Planning - Discharge Planning Discharge Plan: Outpatient Follow Up Outpatient Program: [facility] Recommendations for Continuing Care: Medication Management, Psychotherapy, Substance Abuse Counseling, Primary Care Followup Medications: Current Medications Clonidine HCl (Catapres Tab*) 0.1 mg PO BID PRN PRN Reason: AGITATION/ANXIETY Last Admin: 06/29/19 08:47 Dose: 0.1 mg Escitalopram Oxalate (Lexapro *) 20 mg PO DAILY [facility] Last Admin: 06/29/19 08:44 Dose: 20 mg Gabapentin (Neurontin Cap(*)) 300 mg PO TID [facility] Last Admin: 06/29/19 08:44 Dose: 300 mg Mirtazapine (Remeron Tab*) 15 mg PO BEDTIME [facility] Last Admin: 06/28/19 20:15 Dose: 15 mg Discharge Planning: Prescriptions provided for discharge [x] Yes [] No Follow up care details as per social work arrangements: [facility] [place] [facility] Patient response to discharge plan: [x] eager for discharge [x] agreeable with discharge plan [] ambivalent about discharge [] disagrees with discharge today
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
== END 2019-06-29 13:30 | disposition home or self-care (01) | DRG 740 ==
LOC: ED 12:25 → BSU 22:32
PROVIDERS: ADMIT Psychiatry & Neurology Psychiatry; ATTEND Psychiatry & Neurology Psychiatry
PROC: 0JQH0ZZ Repair Left Lower Arm Subcutaneous Tissue and Fascia, Open Approach (ICD-10-PCS; principal; 2019-06-24)
DX: F43.10 Post-traumatic stress disorder, unspecified (principal); R45.851 Suicidal ideations; F14.90 Cocaine use, unspecified, uncomplicated; F12.90 Cannabis use, unspecified, uncomplicated; F17.210 Nicotine dependence, cigarettes, uncomplicated; E11.9 Type 2 diabetes mellitus without complications; F10.129 Alcohol abuse with intoxication, unspecified; Y90.8 Blood alcohol level of 240 mg/100 ml or more; I10 Essential (primary) hypertension; B19.20 Unspecified viral hepatitis C without hepatic coma; S51.812A Laceration without foreign body of left forearm, initial encounter; X78.1XXA Intentional self-harm by knife, initial encounter; Z72.89 Other problems related to lifestyle; Z79.899 Other long term (current) drug therapy; Y92.89 Other specified places as the place of occurrence of the external cause
CPT/HCPCS: 36415; 80053; 80061; 80307; 80320; 80329; 81003; 83036; 84439; 84443; 84479; 85025; 87522; 90853; 99222; 99231; 99232; 99238; 99283; A9270-GY; G0480; J1200; J1630; J2060

== ENCOUNTER 2020-07-13 21:28 | Inpatient (IN) ==
[2020-07-14] MEDS ORDERED: NS 0.9% 1000 ml BAG 1,000 ML IV.FLUID IV ONE (00:08)
[2020-07-14] MEDS ORDERED: cefTRIAXone 2 GM ADDV.VIAL 2 GM in NS 0.9% 100 ml BAG 100 ML IVPB ONE (00:09)
[2020-07-14] MEDS ORDERED: Vancomycin 1,750 MG in NS 0.9% 500 ml BAG 500 ML IVPB ONE (01:00)
[2020-07-14 01:39] LABS: ABS Eosinophils 0.1 10^3/ul (0-0.6); ABS Lymphocytes 2.8 10^3/ul (1.0-4.8); ABS Neutrophils 5.3 10^3/ul (1.5-7.7); Eosinophil % 0.5 %; Hematocrit 37 % (42-52); Hemoglobin 12.1 g/dL (14.0-18.0); Lymphocyte % 30.3 %; Mean Corpuscular HGB Conc 33 g/dL (31-36); Mean Corpuscular Hemoglobin 31 pg (27-31); Mean Corpuscular Volume 93 fL (80-94); Mean Platelet Volume 6.8 fL (7.4-10.4); Platelet Count 219 10^3/uL (150-450); Red Blood Count 3.94 10^6 /uL (4.18-5.48); Red Cell Distribution Width 17 % (10-15); White Blood Count 9.3 10^3/uL (3.5-10.8)
[2020-07-14 01:45] LABS: INR 1.17 (0.82-1.09)
[2020-07-14 02:00] LABS: Albumin 3.7 g/dL (3.2-5.2); Albumin/Globulin Ratio 0.8 (1-3); BUN/Creatinine Ratio 9.8 (8-20); C Reactive Protein 20.7 mg/L (<8.01); Calcium 8.8 mg/dL (8.6-10.3); EGFR African American 122.4 (>60); EGFR Non-African American 101.1 (>60); Globulin 4.6 g/dL (2-4); Potassium 3.3 mmol/L (3.5-5.0); Total Bilirubin 0.7 mg/dL (0.2-1.0); Total Protein 8.3 g/dL (6.4-8.9)
[2020-07-14] MEDS ORDERED: Potassium Chlor 20 meq TAB.ER PO ONE ×2 (02:17→07:16)
[2020-07-14] MEDS ORDERED: Albuterol 2.5mg/3 ml (0.083%) NEB.SOLN INH PRN (02:55)
[2020-07-14] MEDS ORDERED: Ondansetron 4 mg VIAL 2 MG/ML 2 ml VIAL IV PRN (02:55)
[2020-07-14] MEDS ORDERED: Buffered Lidocaine 1% SYRIN 1 ml INTRADERM ONE (02:59)
[2020-07-14] MEDS ORDERED: NS 0.9% 1000 ml BAG 1,000 ML IV SCH (03:00)
[2020-07-14] MEDS ORDERED: cefTRIAXone 1 gm/50 mL NS BAG 1 GM/50 ML BAG IVPB SCH (03:00)
[2020-07-14] MEDS ORDERED: Vancomycin per Pharmacy 1 EA NOTE FOLLOW UP SCH (03:00)
[2020-07-14] MEDS ORDERED: Enoxaparin 40 MG/0.4 ML SYR SUBCUT SCH (05:00)
[2020-07-14] MEDS: HYDROcodone/ACETAMIN 5/325 mg TAB PO PRN ×3 (05:22→13:27)
[2020-07-14 07:52] LABS: Urine Appearance Clear; Urine Bilirubin Negative (Negative); Urine Blood Negative (Negative); Urine Color Straw; Urine Glucose Negative (Negative); Urine Ketones Negative (Negative); Urine Nitrite Negative (Negative); Urine Protein Negative (Negative); Urine Specific Gravity 1.006 (1.010-1.030); Urine Urobilinogen Negative (Negative)
[2020-07-14] MEDS ORDERED: DULoxetine DR 60 mg CAP PO SCH (09:00)
[2020-07-14] MEDS ORDERED: Multivitamins/Minerals TAB PO SCH (09:00)
[2020-07-14] MEDS: Vancomycin 1,250 MG in NS 0.9% 250 ml 250 ML IVPB SCH ×2 (13:28→16:41)
[2020-07-14 16:43] VITALS: BP 143/85
[2020-07-14] MEDS ORDERED: Senna TAB 8.6 mg TAB PO SCH (21:00)
[2020-07-15] MEDS ORDERED: cefTRIAXone 2 GM ADDV.VIAL 2 GM in NS 0.9% 100 ml BAG 100 ML IV SCH (01:00)
[2020-07-15] MEDS ORDERED: Vancomycin Trough Check NOTE FOLLOW UP ONE (11:30)
== END 2020-07-14 16:15 | disposition home or self-care (01) | DRG 383 ==
LOC: ED 21:28 → MED 21:28
PROVIDERS: ADMIT Hospitalist; ATTEND Internal Medicine

== ENCOUNTER 2021-03-20 17:40 | Inpatient (IN) ==
[2021-03-20] MEDS ORDERED: NS 0.9% 1000 ml BAG 1,000 ML IV ONE ×2 (17:53→19:39)
[2021-03-20 17:54] LABS: Hematocrit 41 % (42-52); Hemoglobin 13.7 g/dL (14.0-18.0); Mean Corpuscular HGB Conc 34 g/dL (31-36); Mean Corpuscular Hemoglobin 31 pg (27-31); Mean Corpuscular Volume 91 fL (80-94); Mean Platelet Volume 7.5 fL (7.4-10.4); Platelet Count 201 10^3/uL (150-450); Red Blood Count 4.48 10^6 /uL (4.18-5.48); Red Cell Distribution Width 17 % (10-15); White Blood Count 13.8 10^3/uL (3.5-10.8)
[2021-03-20 18:12] LABS: ALT 37 U/L (7-52); Albumin 3.7 g/dL (3.2-5.2); Albumin/Globulin Ratio 0.8 (1-3); Alkaline Phosphatase 82 U/L (35-149); Blood Urea Nitrogen 9 mg/dL (6-24); CO2 Carbon Dioxide 22 mmol/L (22-32); Calcium 9.1 mg/dL (8.6-10.3); Chloride 95 mmol/L (101-111); EGFR African American 48.3 (>60); EGFR Non-African American 39.9 (>60); Globulin 4.8 g/dL (2-4); Glucose 120 mg/dL (70-100); Sodium 130 mmol/L (135-145); Total Protein 8.5 g/dL (6.4-8.9)
[2021-03-20 18:27] LABS: Troponin I 0.06 ng/mL (<0.03)
[2021-03-20] MEDS ORDERED: Iodixanol (CONTRAST) 320 MG/ML 100 ML SDV IV ONE (18:29)
[2021-03-20 18:39] LABS: AST 118 U/L (13-39); Anion Gap 13 mmol/L (2-11); Potassium 3.7 mmol/L (3.5-5.0)
[2021-03-20 18:41] LABS: ABS Lymphocytes 3.2 10^3/ul (1.0-4.8); ABS Monocytes 1.8 10^3/ul (0-0.8); ABS Neutrophils 8.7 10^3/ul (1.5-7.7); Eosinophil % 0.3 %; Lymphocyte % 23.3 %
[2021-03-20 21:01] LABS: Urine Appearance Clear; Urine Bilirubin Negative (Negative); Urine Blood 1+ (Negative); Urine Color Straw; Urine Glucose Negative (Negative); Urine Ketones Negative (Negative); Urine Nitrite Negative (Negative); Urine Protein Negative (Negative); Urine Specific Gravity 1.011 (1.002-1.030); Urine Urobilinogen Negative (Negative)
[2021-03-20 21:02] LABS: Urine Bacteria Absent (Absent); Urine Red Blood Cell Trace(0-2/hpf) (Absent); Urine White Blood Cell Absent (Absent)
[2021-03-20 21:13] LABS: Magnesium 1.8 mg/dL (1.9-2.7); Urine Benzodiazepine Screen None Detected (None Detect); Urine Cannabinoids Screen Presumptive Positive (None Detect); Urine Opiates Screen None Detected (None Detect)
[2021-03-20 21:20] LABS: Troponin I 0.05 ng/mL (<0.03)
[2021-03-20] MEDS ORDERED: Magnesium Sulfate IV 1GM/100ML 1 GM/100 ML BAG IV ONE (21:50)
[2021-03-20] MEDS ORDERED: Thiamine 100 MG/ML 2 ml VIAL (200 mg) IM ONE (22:30)
[2021-03-20] MEDS ORDERED: Enoxaparin 40 MG/0.4 ML SYR SUBCUT SCH (23:00)
[2021-03-20] MEDS ORDERED: Thiamine 100 MG/ML 2 ml VIAL 100 MG, Folic Acid IV 1 MG, Multiple Vitamin IV ADULT 10 M... IV ONE (23:00)
[2021-03-20] MEDS ORDERED: Multivitamins/Minerals TAB PO SCH (23:00)
[2021-03-20 23:13] LABS: Creatine Kinase 1626 U/L (10-223)
[2021-03-21 01:27] LABS: Troponin I 0.05 ng/mL (<0.03)
[2021-03-21 03:23] LABS: ABS Basophils 0.1 10^3/ul (0-0.2); ABS Eosinophils 0.1 10^3/ul (0-0.6); ABS Lymphocytes 4.1 10^3/ul (1.0-4.8); ABS Monocytes 1.3 10^3/ul (0-0.8); ABS Neutrophils 5.8 10^3/ul (1.5-7.7); Hematocrit 38 % (42-52); Hemoglobin 13.1 g/dL (14.0-18.0); Lymphocyte % 35.6 %; Mean Corpuscular HGB Conc 34 g/dL (31-36); Mean Corpuscular Hemoglobin 31 pg (27-31); Mean Corpuscular Volume 90 fL (80-94); Mean Platelet Volume 7.6 fL (7.4-10.4); Nucleated Red Blood Cells % 0.1; Platelet Count 175 10^3/uL (150-450); Red Blood Count 4.24 10^6 /uL (4.18-5.48); Red Cell Distribution Width 18 % (10-15); White Blood Count 11.4 10^3/uL (3.5-10.8)
[2021-03-21 03:38] LABS: Calcium 8.4 mg/dL (8.6-10.3); EGFR African American 72.9 (>60); EGFR Non-African American 60.2 (>60); HDL Cholesterol 43.9 mg/dL; Potassium 3.5 mmol/L (3.5-5.0)
[2021-03-21] MEDS: NS 0.9% 1000 ml BAG 1,000 ML IV SCH ×2 (09:49→22:23)
[2021-03-21] MEDS: Enoxaparin 40 MG/0.4 ML SYR SUBCUT SCH (09:49)
[2021-03-21] MEDS: Multivitamins/Minerals TAB PO SCH (09:57)
[2021-03-21] MEDS ORDERED: COVID-19 VACCINE, AD26(JANSSEN)/PF 0.5 ML IM ONE (14:00)
[2021-03-22] MEDS: Multivitamins/Minerals TAB PO SCH (08:52)
[2021-03-22] MEDS: Enoxaparin 40 MG/0.4 ML SYR SUBCUT SCH (08:52)
[2021-03-22 09:12] LABS: Hematocrit 38 % (42-52); Hemoglobin 12.8 g/dL (14.0-18.0); Mean Corpuscular HGB Conc 34 g/dL (31-36); Mean Corpuscular Hemoglobin 31 pg (27-31); Mean Corpuscular Volume 91 fL (80-94); Mean Platelet Volume 7.3 fL (7.4-10.4); Platelet Count 152 10^3/uL (150-450); Red Blood Count 4.16 10^6 /uL (4.18-5.48); Red Cell Distribution Width 17 % (10-15); White Blood Count 9.1 10^3/uL (3.5-10.8)
[2021-03-22 09:25] LABS: Calcium 8.6 mg/dL (8.6-10.3); EGFR African American 110.9 (>60); EGFR Non-African American 91.6 (>60); Potassium 3.3 mmol/L (3.5-5.0)
[2021-03-22] MEDS ORDERED: Potassium Chlor 20 meq TAB.ER PO ONE (09:59)
[2021-03-22] MEDS: Nicotine GUM 4MG FRUIT FLAVOR PO PRN ×2 (12:07→14:07)
[2021-03-22] MEDS ORDERED: Lorazepam PYXIS KEY PRN (12:08)
[2021-03-22] MEDS ORDERED: LORazepam 2 mg VIAL 1 ml IV PUSH ONE (12:08)
[2021-03-22] MEDS ORDERED: Ziprasidone IM 20 mg VIAL 1 ml VIAL IM ONE (13:17)
[2021-03-22] MEDS: NS 0.9% 1000 ml BAG 1,000 ML IV SCH (14:06)
[2021-03-23] MEDS: NS 0.9% 1000 ml BAG 1,000 ML IV SCH ×2 (01:10→14:17)
[2021-03-23] MEDS ORDERED: Ondansetron 4 mg VIAL 2 MG/ML 2 ml VIAL IV PRN (07:10)
[2021-03-23] MEDS: Enoxaparin 40 MG/0.4 ML SYR SUBCUT SCH (07:56)
[2021-03-23] MEDS: Multivitamins/Minerals TAB PO SCH (07:56)
[2021-03-23] MEDS: Nicotine GUM 4MG FRUIT FLAVOR PO PRN (07:56)
[2021-03-23 17:44] VITALS: BP 143/86
[2021-03-23] MEDS ORDERED: DULoxetine DR 30 mg CAP PO SCH (21:00)
== END 2021-03-23 18:20 | disposition left against medical advice (07) | DRG 469 ==
LOC: ED 17:40 → MEDTELE 17:40
PROVIDERS: ADMIT Internal Medicine; ATTEND Hospitalist